=== PATIENT | female | born 1965 | race Caucasian/White ===

== ENCOUNTER → 2022-09-18 | Outpatient (CLI) | payer OTHER ==
--- NOTE | 2022-09-18 07:58 | US ---
EXAMINATION TYPE: US duplex aorta DATE OF EXAM: 09/18/2022 COMPARISON: NONE CLINICAL HISTORY: RUQ pain R10.11, fam hx Z82.49. Family history of AAA TECHNIQUE: Multiple sonographic images of the abdominal aorta are obtained. FINDINGS: EXAM MEASUREMENTS: Abdominal Aorta: Proximal: 1.9 x 1.9 cm Mid: 1.3 x 1.6 cm Distal: 1.2 x 1.1 cm Bifurcation: .9 cm 1.2 cm [employer]OR [employer] NOTES: No evidence of AAA seen. Aorta is visualized through the bifurcation. IMPRESSION: No Ultrasound evidence for greater than 3.0 cm AAA.
--- NOTE | 2022-09-18 08:01 | US ---
EXAMINATION TYPE: US gallbladder DATE OF EXAM: 09/18/2022 COMPARISON: NONE CLINICAL HISTORY: RUQ pain R10.11, fam hx Z82.49. TECHNIQUE: Multiple sonographic images of the right upper quadrant are obtained. Pain. 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 Visualized liver heterogeneously hyperechoic. No focal m asses or ductal dilatation. No right-sided hydronephrosis. No shadowing mobile gallstones. Fold is no demond. IMPRESSION: No shadowing mobile gallstones or ultrasound evidence for acute cholecystitis
== END | disposition home or self-care (01) ==
LOC: RADUSWWP 06:51
PROVIDERS: ATTEND Family Medicine
DX: R10.11 Right upper quadrant pain (principal); Z82.49 Family history of ischemic heart disease and other diseases of the circulatory system
CPT/HCPCS: 76705; 93979

== ENCOUNTER 2023-02-03 08:36 | Day surgery (SDC) | payer MEDICARE, OTHER ==
[2023-01-31 10:27] VITALS: BMI 32.5
[~2023-02-03 08:36] MED LIST: ALPRAZolam 0.25 MG TAB PO PRN; ALPRAZolam 0.5 MG TAB PO PRN; ASPIRIN 325 MG TAB PO STA; NITROGLYCERIN SL TABS 0.4 MG TAB SUBLINGUAL PRN; SODIUM CHLORIDE 0.9% 1,000 ML in EMPTY BAG 1 BAG IV SCH
[2023-02-03 08:54] VITALS: RESP 18; TEMP 98.1
[2023-02-03 09:10] LABS: Basophils % (A) 0 %; Eosinophils # (A) 0.1 k/uL (0-0.7); Eosinophils % (A) 2 %; HCT 39.6 % (34.0-46.0); HGB 13.4 gm/dL (11.4-16.0); Lymphocytes # (A) 1.8 k/uL (1.0-4.8); Lymphocytes % (A) 27 %; MCH 33.6 pg (25.0-35.0); MCHC 33.9 g/dL (31.0-37.0); Macrocytosis Slight; Mean Platelet Volume 8.9; Monocytes # (A) 0.3 k/uL (0-1.0); Monocytes % (A) 4 %; Neutrophils # (A) 4.3 k/uL (1.3-7.7); Neutrophils % (A) 65 %; Platelet Count 276 k/uL (150-450); RDW 14.3 % (11.5-15.5); WBC 6.6 k/uL (3.8-10.6)
[2023-02-03] MEDS ORDERED: HEPARIN SODIUM 1,000 UN/ML (10ML VL) ONE (10:08)
[2023-02-03] MEDS ORDERED: VERAPAMIL 2.5 MG/ML 2 ML AMP ONE (10:08)
[2023-02-03] MEDS ORDERED: fentaNYL (PF) 50 MCG/ML 2 ML AMP ONE (10:08)
[2023-02-03] MEDS: MIDAZOLAM 2 MG/2 ML VIAL IVP ONE ×2 (10:48→10:56)
[2023-02-03] MEDS: fentaNYL (PF) 50 MCG/ML 2 ML AMP IVP ONE ×2 (10:48→11:36)
[2023-02-03] MEDS ORDERED: LIDOCAINE 1% INJ 10MG/ML (5 ML VIAL-PF) SQ ONE (10:50)
[2023-02-03] MEDS ORDERED: VERAPAMIL SYRINGE (5 MG/10 ML) INTRAARTER ONE (10:52)
[2023-02-03] MEDS: HEPARIN SODIUM 1,000 UN/ML (10ML VL) IVP ONE ×2 (10:52→11:13)
[2023-02-03] MEDS ORDERED: CLOPIDOGREL 75 MG TAB ONE (11:09)
[2023-02-03] MEDS: NITROGLYCERIN 1000MCG/10ML SYRINGE INTRAARTER ONE ×5 (11:12→11:31)
[2023-02-03] MEDS ORDERED: CLOPIDOGREL 75 MG TAB PO ONE (11:13)
[2023-02-03] MEDS ORDERED: IOPAMIDOL-370 125ML BTL INJ ONE (11:27)
[2023-02-03] MEDS ORDERED: MIDAZOLAM 2 MG/2 ML VIAL IVP ONE (11:36)
[2023-02-03] MEDS ORDERED: IOPAMIDOL-370 100ML BTL INJ ONE (11:39)
[2023-02-03] MEDS ORDERED: CYCLOBENZAPRINE 10 MG TAB PO PRN (11:40)
[2023-02-03] MEDS ORDERED: ATROPINE SULFATE 0.1 MG/ML 10ML SYRINGE IV PRN (11:42)
[2023-02-03] MEDS ORDERED: MAG HYDROX/AL HYDROX/SIMETH 30 ML CUP PO PRN (11:42)
[2023-02-03] MEDS ORDERED: RX INFO: IV CONTRAST WAS GIVEN 1 EACH MISC MISCELLANE PRN (11:42)
[2023-02-03] MEDS ORDERED: ZOLPIDEM 5 MG TAB PO PRN (11:42)
[2023-02-03] MEDS ORDERED: ACETAMINOPHEN TAB 325 MG TAB PO PRN (12:00)
[2023-02-03] MEDS ORDERED: HEPARIN SODIUM,PORCINE/PF 5,000 UNIT/0.5 ML SYRINGE SQ STA (12:00)
[2023-02-03] MEDS ORDERED: ACETAMINOPHEN TAB 325 MG TAB ONE (12:01)
--- NOTE | 2023-02-03 13:07 | P.PRCINT ---
Percutaneous Coronary Int. - Percutaneous Coronary Intervention Percutaneous Coronary Intervention: PROCEDURES PERFORMED: Left heart catheterization, bilateral coronary angiography, iFR circumflex, PCI circumflex with a 3.5 x 23mm Xience MARIYA, post dilated with a 4.0 NC balloon, IVUS circumflex INDICATION: Abnormal stress test, dyspnea on exertion consistent with anginal equivalent CONSENT:I have discussed the risks, benefits and alternative therapies for the above-mentioned procedure and for both sedation/analgesia as well as necessary blood product administration, if indicated, as they pertain to this patient. The patient has indicated understanding and acceptance of the risks and procedures discussed. PROCEDURE: After the risks, benefits and alternatives of the above mentioned procedure explained in detail with the patient, informed consent was obtained. Patient was taken to the catheterization lab and prepped and draped in usual fashion. 1% lidocaine was used to anesthetize the right radial artery. A 6- Australian sheath was placed in the right radial artery using modified Seldinger technique. Left coronary angiography was performed with a 5-Australian JL 3.5 catheter and right coronary angiography was performed with a 5-Australian JR5 catheter in various views. A 5-Australian FR5 catheter was inserted into the left ventricle and pressure measurements were obtained. The decision was made to perform iFR of the circumflex. A 6-Australian CLS 3.5 guide was used to engage the left main. A 0.014 pressure wire was advanced into the proximal left main and normalized. The wire was then advanced 1 cm distal to the circumflex lesion. iFR was grossly abnormal at 0.72 and therefore decision was made to perform PCI. A 2.5 x 12 mm balloon and then a 3.25 x 15 mm NC balloon were used to predilate the lesion. Next a 3.5 x 23 mm Xience MARIYA was advanced and deployed in the mid circumflex. The midportion was postdilated with a 4.0 noncompliant balloon. Patient did have some chest pain which appeared more related to heartburn from swallowing Plavix however IVUS was performed which showed excellent stent apposition with reference vessel size 3.75-4.0 mm. The wire was pulled and final angiograms were performed. Pre- intervention there is 60-70% circumflex stenosis with ERIN 3 flow and postintervention there was 0% stenosis with ERIN 3 flow. The right radial sheath was removed and a TR band was placed with hemostasis achieved. The patient tolerated the procedure well. Patient was transported back to the post catheterization holding area in stable condition. Conscious Sedation: Patient was monitored under the direct supervision of vision of myself for conscious sedation using Versed and fentanyl for a total duration of 45 minutes HEMODYNAMICS: Ao: 133/78 LV: 129/5, LVEDP 12 SELECTIVE CORONARY ARTERIOGRAPHY: LEFT MAIN: The left main is a large caliber vessel which bifurcates into the LAD and circumflex. There is no significant stenosis. LEFT ANTERIOR DESCENDING CORONARY ARTERY: LAD is a large caliber vessel which wraps around to the apex. There are mild luminal irregularities LEFT CIRCUMFLEX CORONARY ARTERY: Left circumflex is a moderate to large caliber vessel with a mid circumflex 60-70% stenosis and otherwise mild luminal irregularities RIGHT CORONARY ARTERY: The right coronary artery is a small to moderate caliber vessel which gives off a PDA and PLV branch and is the dominant vessel. There are mild luminal irregularities. FINAL IMPRESSION: 1. Relatively normal coronary arteries with only mild luminal irregularities other than a mid circumflex 60-70% stenosis. 2. iFR anbormal of circumflex at 0.72 3. S/p PCI circumflex with a 3.5 x 23mm Xience MARIYA, post dilated with a 4.0 NC balloon 4. Normal left sided filling pressures PLAN: 1. Aggressive risk factor modification per most recent ACC/AHA guidelines. 2. Continue dual antiplatelets with aspirin and Plavix for 12 months.
[2023-02-03] MEDS ORDERED: amLODIPine 5 MG TAB PO SCH (14:00)
[2023-02-03 16:10] VITALS: BP 110/62; PULSE 66
[2023-02-03] MEDS ORDERED: NON FORMULARY DRUG (Diclofenac Sodium [Voltaren] 75 MG Tablet) PO SCH (21:00)
[2023-02-03] MEDS ORDERED: ATORVASTATIN 80 MG TAB PO SCH (21:00)
[2023-02-03] MEDS ORDERED: METOPROLOL TARTRATE 25 MG TAB PO SCH (21:00)
[2023-02-03] MEDS ORDERED: GABAPENTIN 300 MG CAP PO SCH (21:00)
[2023-02-04] MEDS ORDERED: metHOTREXate sodium 2.5 MG TAB PO SCH (09:00)
[2023-02-04] MEDS ORDERED: MULTIVITAMINS, THERA 1 EACH TAB PO SCH (09:00)
[2023-02-04] MEDS ORDERED: NON FORMULARY DRUG (Lisinopril [Zestril] 40 MG Tablet) PO SCH (09:00)
[2023-02-04] MEDS ORDERED: NON FORMULARY DRUG (Bupropion Hcl [Bupropion Hcl Sr] 150 MG Tab.Er.12h) PO SCH (09:00)
[2023-02-04] MEDS ORDERED: OXYBUTYNIN 10 MG TAB.ER.24 PO SCH (09:00)
[2023-02-04] MEDS ORDERED: FOLIC ACID 1 MG TAB PO SCH (09:00)
[2023-02-04] MEDS ORDERED: NON FORMULARY DRUG (Fluoxetine Hcl [Prozac] 40 MG Capsule) PO SCH (09:00)
[2023-02-04] MEDS ORDERED: ASPIRIN 81 MG PO SCH (09:00)
[2023-02-04] MEDS ORDERED: CLOPIDOGREL 75 MG TAB PO SCH (09:00)
[2023-02-09] MEDS ORDERED: ERGOCALCIFEROL 1,250 MCG (50,000 IU) CAPSULE PO SCH (11:40)
== END 2023-02-03 16:13 | disposition home or self-care (01) ==
LOC: CATHCVL 08:36
PROVIDERS: ATTEND Internal Medicine
DX: I25.10 Atherosclerotic heart disease of native coronary artery without angina pectoris (principal); I10 Essential (primary) hypertension; R06.09 Other forms of dyspnea; E78.5 Hyperlipidemia, unspecified; F17.210 Nicotine dependence, cigarettes, uncomplicated; Z88.1 Allergy status to other antibiotic agents
CPT/HCPCS: 92978; 93458; 93799; 85025; C9600; C1769 ×3; C1887; C1894; C1753; C1874; C1725 ×3; J2250; J2001; J3010; J1644; Q9967 ×2

== ENCOUNTER → 2023-08-21 | Outpatient (CLI) | payer MEDICARE, OTHER ==
--- NOTE | 2023-08-21 12:40 | CTL ---
EXAMINATION TYPE: CT Low Dose Lung DATE OF EXAM ORDERED: 08/21/2023 COMPARISON: 12/26/2021 HISTORY: . Low Dose CT Lung Screening CT DLP: [address] CTDI: 2.29 mGy IV CONTRAST USED: None. SCREENING VISIT: Second COMPARISON: None. TECHNIQUE: Low dose computed tomography scan was performed through the chest at 1 millimeter thick se ctions and reconstructed images in the coronal plane at [address] DIAGNOSTIC QUALITY: Satisfactory FINDINGS: LUNG NODULES: A few scattered sub-3 mm pulmonary nodules are redemonstrated. No pulmonary nodularity greater than 5 mm. LUNGS: COPD: Severity: Mild Fibrosis: Severity:None Lymph nodes: None Other findings: None RIGHT PLEURAL SPACE: Effusion: None Calcification: None Thickening: None Pneumothorax: None LEFT PLEURAL SPACE: Effusion: None Calcification: None Thickening: None Pneumothorax: None HEART: Heart Size: Mildly enlarged Coronary calcification: Mild Pericardial effusion: None OTHER FINDINGS: Upper abdomen: No significant abnormality Bony thorax: Degenerative changes Supraclavicular region: No significant abnormalityOther: No significant abnormalityI IMPRESSION: Stable sub-3 mm pulmonary nodules totaling approximately [address] UP [address] CHEST RECOMMENDATION: Follow-up screening in one year CT LUNG RAD: LUNG RAD CATEGORY 2 benign appearance and/or behavior
== END | disposition home or self-care (01) ==
LOC: RADCTMAIN 12:13
PROVIDERS: ATTEND Family Medicine
DX: Z12.2 Encounter for screening for malignant neoplasm of respiratory organs (principal); F17.210 Nicotine dependence, cigarettes, uncomplicated; R91.8 Other nonspecific abnormal finding of lung field
CPT/HCPCS: 71271

== ENCOUNTER → 2023-10-07 | Outpatient (CLI) | payer MEDICARE, OTHER ==
[2023-10-07 18:10] LABS: HCT 40.1 % (37.2-46.3); HGB 12.8 g/dL (12.0-15.0); MCH 33.5 pg (27.0-32.0); MCHC 31.9 g/dL (32.0-37.0); Mean Platelet Volume 12.4 FL (9.5-12.2); NRBC Per 100 WBC 0 X 10*3/uL (0.00-0.01); Platelet Count 262 X 10*3/uL (140-440); RBC 3.82 X 10*6/uL (4.10-5.20); RDW 14.5 % (11.5-14.5); WBC 11.78 X 10*3/uL (4.50-10.00)
[2023-10-07 18:11] LABS: Basophils # (A) 0.06 X 10*3/uL (0.00-0.10); Basophils % (A) 0.5 %; Eosinophils # (A) 0.06 X 10*3/uL (0.04-0.35); Eosinophils % (A) 0.5 %; Lymphocytes # (A) 2.86 X 10*3/uL (0.90-5.00); Lymphocytes % (A) 24.3 %; Monocytes # (A) 0.77 X 10*3/uL (0.20-1.00); Monocytes % (A) 6.5 %; Neutrophils # (A) 7.93 X 10*3/uL (1.80-7.70); Neutrophils % (A) 67.4 %
[2023-10-07 18:19] LABS: Blood Urea Nitrogen 23.3 mg/dL (9.0-27.0); Chloride 109 mmol/L (96-109); Glucose 116 mg/dL (70-110); Potassium 4.6 mmol/L (3.5-5.5); Sodium 141 mmol/L (135-145)
[2023-10-07 18:20] LABS: Calcium 9.4 mg/dL (8.7-10.3); Carbon Dioxide 21.3 mmol/L (21.6-31.8)
== END | disposition home or self-care (01) ==
LOC: LABPAT 13:53
PROVIDERS: ATTEND Orthopaedic Surgery Hand Surgery
DX: Z01.812 Encounter for preprocedural laboratory examination (principal); M18.12 Unilateral primary osteoarthritis of first carpometacarpal joint, left hand; G56.02 Carpal tunnel syndrome, left upper limb
CPT/HCPCS: 80048; 85025; 93005

== ENCOUNTER → 2023-10-16 | Outpatient (CLI) | payer MEDICARE, OTHER ==
--- NOTE | 2023-10-16 13:38 | BD ---
EXAMINATION TYPE: Axial Bone Density DATE OF EXAM: 10/16/2023 CLINICAL HISTORY: 58 years old Female. ICD-10 CODE: Z78.0 POST MENOPAUSAL Height: 63" Weight: 194.1lbs FRAX RISK QUESTIONS: Alcohol (3 or more units per day): No Family History (Parent hip fracture): No Glucocorticoids (More than 3mos): No (Ex: prednisone, prednisolone, methylprednisolone, dexamethasone, and hydrocortisone). History of Fracture in Adulthood: No Secondary Osteoporosis: No 1. Type 1 Diabetes: No 2. Hyperthyroidism: No 3. Menopause before 45: No 4. Malnutrition: No 5. Chronic liver disease: No Rheumatoid Arthritis: Yes Current Tobacco Use: Yes RISK FACTORS HISTORY OF: Hip Fracture (Right/Left): No Spine Fracture: No History of Wrist Fracture: No Surgery to Spine/Hip(right/left)/Wrist (right/left): No Family History of Osteoporosis: Yes, Father Active: Yes Diet low in dairy products/other sources of calcium: Yes Postmenopausal woman: Yes Lost more than 2 inches in height since high school: No Frequent falls: No Poor Health: No Hyperparathyroidism: No Adrenal Insufficiency: No MEDICATIONS: Prednisone or other steroids: No Thyroid Medications: No Osteoporosis Medications: Additional Medications: Blood pressure meds, heart meds, cholesterol meds, anxiety meds, vitamin D, C alcium Additional History: None EXAM MEASUREMENTS: Bone mineral densitometry was performed using the Tragara System. Bone mineral density as measured about the Lumbar spine is: ----- L1-L4(G/cm2): 1.116 T Score Values are as follows: ----- L1: -0.8 ----- L2: -1.4 ----- L3: -0.3 ----- L4: 0.0 ----- L1-L4: -0.5 Z Score Values are as follows: ----- L1: -0.5 ----- L2: -1.1 ----- L3: 0.0 ----- L4: 0.3 ----- L1-L4: -0.2 Baseline @ [facility] Bone mineral density about the R hip (g/cm2): 1.050 Bone mineral density about the L hip (g/cm2): 1.079 T Score values are as follows: -----R Neck: -0.5 -----L Neck: -0.2 -----R Total: 0.3 -----L Total: 0.6 Z Score values are as follows: -----R Neck: 0.2 -----L Neck: 0.5 -----R Total: 0.6 -----L Total: 0.8 Baseline @ [facility] FRAX%s: The graph provided illustrates a 5.6% chance for a major osteoporotic fx and a 0.3% chance fo r the hips probability for fx in 10 years time. IMPRESSION: Normal (Values between +1 and -1 indicate normal bone mass). Consider repeating this study in 5 year s or sooner if there is some new clinical indication. NOTE: T-SCORE=SD OF THE YOUNG ADULT MEAN.
--- NOTE | 2023-10-19 18:15 | MM ---
Reason for Exam: Screening (asymptomatic). Patient History: Menarche at age 13. First Full-Term at age 17. Postmenopausal. Risk Values: Rosemary 5 year model risk: 1.0%. NCI Lifetime model risk: 5.6%. Prior Study Comparison: No prior studies available for comparison. Tissue Density: The breast tissue is heterogeneously dense. This may lower the sensitivity of mammography. Findings: Analyzed By CAD. No significant mass, suspicious microcalcification, or other discrete abnormality is seen. Overall Assessment: Negative, BI-RAD 1 Management: Screening Mammogram of both breasts in 1 year. . Patient should continue monthly self-breast exams. A clinical breast exam by your physician is recommended on an annual basis. This exam should not preclude additional follow-up of suspicious palpable abnormalities. Note on Rosemary scores and lifetime risk: 1. A Rosemary score greater than 3% is considered moderate risk. If this is the case, consider specialist referral to assess eligibility for a risk reducing agent. 2. If overall lifetime risk for the development of breast cancer is 20% or higher, the patient may qualify for future screening with alternating mammogram and breast MRI. Electronically signed and approved by: Dewayne Irwin M.D. Radiologist
== END | disposition home or self-care (01) ==
LOC: RADMAMWWP 07:44
PROVIDERS: ATTEND Family Medicine
DX: Z12.31 Encounter for screening mammogram for malignant neoplasm of breast (principal); M85.88 Other specified disorders of bone density and structure, other site; Z78.0 Asymptomatic menopausal state
CPT/HCPCS: 77063; 77067; 77080

== ENCOUNTER 2023-10-29 10:40 | Day surgery (SDC) | payer MEDICARE, OTHER ==
--- NOTE | 2023-10-28 10:01 | P.HPOR ---
History of Present Illness H&P Date: 10/28/23 Subjective: This is a 58 year old female that presents today for initial evaluation regarding a several year history of progressively worsening left base of the thumb pain and left hand numbness and tingling in the thumb, index, and middle finger. She has tried bracing, injections into the thumb CMC joint and NSAIDs with only temporary relief of her symptoms. She has symptoms on a daily basis and has pain with any type of pinch or grasp. She denies any injury. Physical Examination: LUE: AIN/PIN/Radial/Ulnar/Median motor intact. Radial/Ulnar/Median SILT. 2+/4 Radial/Ulnar pulses palpated. 5/5 APB, 5/5 FDI. Negative Finkelsteins, positive CMC grind, positive Durkan's compression. Imaging: X-Rays of the left hand 3v taken in office today demonstrates severe thumb CMC arthritis. Impression: 1.) Left thumb CMC arthritis, severe. 2.) Left carpal tunnel syndrome Plan: Diagnosis and treatment options were discussed with the patient. She has failed conservative treatment and would like to pursue a left thumb CMC basilar joint arthroplasty and left endoscopic vs open carpal tunnel release. Risks and benefits of surgery including bleeding, infection, damage to surrounding tissue, need for further surgery, possible need to convert to open procedure, residual numbness were discussed and the patient wished to go forward with surgery. The patient was agreeable with this plan. CC:Sonam AGUILLON -Andreas Jha DO Orthopedic Hand/Upper Extremity Surgeon Past Medical History Past Medical History: Coronary Artery Disease (CAD), Hyperlipidemia, Hypertension, Rheumatoid Arthritis (RA) Additional Past Medical History / Comment(s): stress incontinence History of Any Multi-Drug Resistant Organisms: None Reported Past Surgical History: Heart Catheterization With Stent, Joint Replacement, Tubal Ligation Additional Past Surgical History / Comment(s): Total bilateral knee arthroplasies Past Anesthesia/Blood Transfusion Reactions: No Reported Reaction Date of Last Stent Placement:: 01/2023 Smoking Status: Current every day smoker - Past Family History Father Family Medical History: COPD, Coronary Artery Disease (CAD), CVA/TIA, Hyperlipidemia, Hypertension, Myocardial Infarction ([place]), Vascular Disorder Additional Family Medical History / Comment(s): AAA, aneurysm. Mother Family Medical History: Renal Disease Additional Family Medical History / Comment(s): at 62 yrs from kidney problems. Medications and Allergies Home Medications Medication Instructions Recorded Confirmed Type ALPRAZolam [Xanax] 0.5 mg PO BID PRN 01/31/23 10/27/23 History Aspirin 81 mg PO 1700 01/31/23 10/27/23 History Cyclobenzaprine [Flexeril] 10 mg PO HS PRN 01/31/23 10/27/23 History Diclofenac Sodium [Voltaren] 75 mg PO BID 01/31/23 10/27/23 History Ergocalciferol [Vitamin D2 (1250 1,250 mcg PO DELANEY 01/31/23 10/27/23 History Mcg = [id number] Iu)] FLUoxetine HCL [PROzac] 40 mg PO QAM 01/31/23 10/27/23 History Gabapentin [Neurontin] 300 mg PO BID 01/31/23 10/27/23 History Multivitamins, Thera [Multivitamin 1 tab PO QAM 01/31/23 10/27/23 History (formulary)] Oxybutynin ER [Ditropan XL] 10 mg PO QAM 01/31/23 10/27/23 History amLODIPine [Norvasc] 5 mg PO 1700 01/31/23 10/27/23 History buPROPion HCL [buPROPion HCL SR] 150 mg PO BID 01/31/23 10/27/23 History lisinopriL [Zestril] 40 mg PO QAM 01/31/23 10/27/23 History Atorvastatin [Lipitor] 80 mg PO HS tab 02/03/23 10/27/23 Rx Metoprolol Tartrate [Lopressor] 12.5 mg PO BID tab 02/03/23 10/27/23 Rx Clopidogrel [Plavix] 75 mg PO QAM 10/27/23 10/27/23 History Varenicline [Chantix Continuing 1 mg PO DIRECTED 10/27/23 10/27/23 History Pack] Allergies Allergy/AdvReac Type Severity Reaction Status Date / Time Sulfa (Sulfonamide Allergy Severe Anaphylaxis Verified 10/27/23 10:18 Antibiotics) Physical Examination Osteopathic Statement: *. No significant issues noted on an osteopathic structural exam other than those noted in the History and Physical/Consult.
[2023-10-29] MEDS ORDERED: DEXAMETHASONE SOD PHOSPHATE 4 MG/ML 1 ML VIAL IV ONE (10:58)
[2023-10-29] MEDS ORDERED: LACTATED RINGERS 1,000 ML IV SCH (10:58)
[2023-10-29] MEDS ORDERED: ONDANSETRON 4 MG/2 ML VIAL IVP ONE (10:58)
[2023-10-29] MEDS ORDERED: HYDROmorphone 0.5 MG/0.5 ML SYRINGE IVP PRN (10:58)
[2023-10-29] MEDS ORDERED: LIDOCAINE 1% (10MG/ML) FOR IV START INTRADERMA ONE (11:24)
[2023-10-29] MEDS ORDERED: MIDAZOLAM 2 MG/2 ML VIAL IVP ONE (11:36)
[2023-10-29] MEDS ORDERED: fentaNYL (PF) 50 MCG/ML 2 ML AMP IVP ONE (11:36)
[2023-10-29 11:38] VITALS: TEMP 97.1
[2023-10-29] MEDS ORDERED: ePHEDrine 50 MG/ML 1 ML VIAL ONE (11:54)
[2023-10-29] MEDS ORDERED: ROPIVACAINE 5 MG/ML 30 ML VIAL ONE (11:54)
[2023-10-29] MEDS ORDERED: fentaNYL (PF) 50 MCG/ML 2 ML AMP ONE (11:54)
[2023-10-29] MEDS ORDERED: SODIUM CHLORIDE 0.9% (PF) 10 ML VIAL ONE (11:54)
[2023-10-29] MEDS ORDERED: PROPOFOL 10 MG/ML 20 ML VIAL IV ONE (11:54)
[2023-10-29] MEDS ORDERED: PHENYLEPHRINE-0.9% NACL SYG 1,000 MCG/10 ML SYRINGE ONE (11:54)
[2023-10-29] MEDS ORDERED: LIDOCAINE 1% INJ 10MG/ML (20 ML MDV) ONE (11:54)
[2023-10-29] MEDS ORDERED: WATER FOR INJECTION, STERILE 10 ML VIAL IV ONE (11:54)
[2023-10-29 12:03] VITALS: RESP 16
--- NOTE | 2023-10-29 13:10 | P.OP ---
Date of Procedure: 10/29/23 Preoperative Diagnosis: 1.) Left carpal tunnel syndrome 2.) Left thumb CMC arthritis Postoperative Diagnosis: 1.) Left carpal tunnel syndrome 2.) Left thumb CMC arthritis Procedure(s) Performed: 1.) Left endoscopic carpal tunnel release 2.) Left thumb CMC basilar joint arthroplasty Implants: Arthrex 3.5mm Swivel Lock suture anchor x2 Surgeon: Andreas Jha Estimated Blood Loss (ml): 0 Pathology: none sent Condition: stable Disposition: PACU Description of Procedure: This is a 58 year old female who presents today for a left endoscopic carpal tunnel release and left thumb basilar joint arthroplasty after having failed conservative treatment in the past. Risks and benefits of surgery were discussed with the patient including bleeding, damage to surrounding tissue, infection, need to convert to open procedure, need for further surgery as well as risks of anesthesia including pulmonary embolism and even and the patient wished to proceed with surgical intervention. The patients was seen in the pre-operative area by myself. Consent and H&P were completed and updated. The correct extremity was marked in the pre-operative area by myself and all other questions were answered. Operative Narrative: The patient was brought to the operating room by the department of anesthesia. They remained on the portable stretcher and a rolling hand table was brought to the side of the operative extremity. Pre-operative time out was performed indicating the correct patient, procedure and laterality. All in the room agreed. The patient was then drifted off to sleep by the department of anesthesia. A nonsterile tourniquet was then applied to the operative extremity and the left upper extremity was then prepped and draped in normal sterile fashion. The operative extremity was the exsanguinated with an esmarch bandage and the tourniquet was inflated to 250mmHg. 15 blade scalpel was utilized to make a transverse incision on the palmar skin just ulnar to the palmaris longus tendon at the level of the distal wrist crease. Ragnell retractor was then placed radially and blunt dissection was performed to reveal the distal forearm fascia. This was lifted with fine Jermaine pick ups and Littler tenotomy scissors were then used to open the forearm fascia transversely and a double skin hook was then placed. Hamate finder was placed into the carpal tunnel and then sequential sized dilators were inserted followed by the synovial elevator to separate the flexor tenosynovium from the undersurface of the transverse carpal ligament and a washboard texture was felt. The MicroAire endoscopic carpal tunnel release system gun was the then inserted into the carpal tunnel hugging the deep portion of the transverse carpal ligament in line with the base of the ring finger. Transverse fibers of the ligament were directly visualized. Pressure was applied on the palm to reveal the distal extent of the transverse carpal ligament. The blade was then deployed and the distal half of the transverse carpal ligament was released. The scope was then brought distal again and remaining transverse fibers were incised with the blade. The proximal half of the transverse carpal ligament was then divided and again the scope was advanced distal and remaining transverse fibers were incised with the blade. The radial and ulnar leaflets were directly visualized and mobile consistent with complete release. Tenotomy scissors were then utilized to release the remaining distal forearm fascia under direct visualization taking care to preserve the palmar cutaneous branch of the median nerve. Longitudinal incision was made over the left thumb CMC joint with a 15 blade scalpel. Blunt dissection was taken down to subcutaneous tissues with littler scissors taking care to preserve the branches of the superficial radial nerve. Dorsal radial artery was identified proximally in the incision and protected throughout the procedure. Scalpel was then made to incise the thumb CMC joint creating full thickness flaps off of the proximal metacarpal base and trapezium, this plane was further developed with a periosteal elevator. Elevator was then utilized to identify the thumb CMC joint and scaphotrapezial joint. McGlamory elevator was then used to excise the trapezium whole. Guidewire was then introduced down to the laser line at the base of the first metacarpal through the same incision and was over drilled. Another guidewire was then inserted at the radial base of the first metacarpal near the Insertion of APL and was then over drilled with normal drill guide. A 3.5mm Arthrex SwiveLock anchor was then inserted into the base of the first metacarpal. While holding the thumb in slight traction and full adduction, another 3.5mm Arthrex SwiveLock anchor was inserted into the base of the second metacarpal and the two strands of fibertape were centered across the first metacarpal base to create a sling around the base suspending the thumb metacarpal, good maxim purchase was appreciated. The thumb was successfully suspended and full ROM was achieved passively. Suture ends were cut and skin was closed with several interrupted 4-0 Monocryl sutures followed by a running 4-0 Monocryl stitch. Sterile dressing consisting of steri strips followed by 4x4s cast padding, and a thumb spica plaster splint was applied. Tourniquet was let down and the hand had brisk cap refill and normal perfusion immediately. The patient was then woken by the department of anesthesia and transferred to PACU in stable condition. Andreas Jha D.O. Orthopedic Hand/Upper Extremity Surgeon
--- NOTE | 2023-10-29 13:15 | P.ANPRN ---
Procedure Note - Anesthesia - Nerve Block Performed Left Axillary Single Time Out Performed: Yes ([id number]) Date of Procedure: 10/29/23 Procedure Start Time: 11:37 Procedure Stop Time: 11:43 Location of Patient: PreOp Indication: Acute Post-Operative Pain, Requested by Surgeon Specifically requested for management of pain by DrSilvestre: Andreas Jha Sedation Type: Sedate with meaningful contact maintained Preparation: Sterile Prep Position: Supine (arm over) Catheter: None Needle Types: Pajunk Needle Gauge: 21 Ultrasound used to visualize needle placement: Yes Ultrasound used to observe medication spread: Yes Injectate: 0.5% Ropivacaine (see comment for volume) (30cc +a 10cc nacl pf (10cc aliqouts each nerve)) Blood Aspirated: No Pain Paresthesia on Injection Noted: No Resistance on Injection: Normal Image Stored and Saved: Yes Events: Uneventful and Well Tolerated
[2023-10-29 14:58] VITALS: BP 111/73; PULSE 73
== END 2023-10-29 14:56 | disposition home or self-care (01) ==
LOC: OR 10:40
PROVIDERS: ATTEND Orthopaedic Surgery Hand Surgery
DX: G56.02 Carpal tunnel syndrome, left upper limb (principal); M18.12 Unilateral primary osteoarthritis of first carpometacarpal joint, left hand; I25.10 Atherosclerotic heart disease of native coronary artery without angina pectoris; I10 Essential (primary) hypertension; M06.9 Rheumatoid arthritis, unspecified; E78.5 Hyperlipidemia, unspecified; F17.200 Nicotine dependence, unspecified, uncomplicated; Z79.02 Long term (current) use of antithrombotics/antiplatelets; Z88.1 Allergy status to other antibiotic agents; Z88.2 Allergy status to sulfonamides; Z79.899 Other long term (current) drug therapy
CPT/HCPCS: 64415; 25447; 29848; C1713; J2250; J1100; J0690; J2405; J2001; J3010; J2795; J2704; J2371

== ENCOUNTER 2024-03-18 12:09 | Emergency (ER) | payer MEDICARE ==
--- NOTE | 2024-03-18 13:03 | ED ---
General Adult HPI - General Chief complaint: GI Bleed Stated complaint: blood in stool,abd pain Time Seen by Provider: 03/18/24 12:48 Source: patient Mode of arrival: ambulatory Limitations: no limitations - History of Present Illness Initial comments: Dictation was produced using [employer] dictation software. please excuse any grammatical, word or spelling errors. Chief Complaint: 58-year-old female presents emergency department for abdominal pain and bright red blood per rectum History of Present Illness: Patient is a 50-year-old female she has past medical history coronary artery disease dyslipidemia and hypertension. Patient for the last 1 to 2 days has been having bright blood per rectum. She states that it stool mixed with blood. Denies any anticoagulation use. She does complain of some lower abdominal pain worse on the left. Denies any history of diverticulitis. Patient has been having night sweats. Denies any fevers or chills. The ROS documented in this emergency department record has been reviewed and confirmed by me. Those systems with pertinent positive or negative responses have been documented in the HPI. All other systems are other negative and/or noncontributory. - Related Data Home Medications Medication Instructions Recorded Confirmed ALPRAZolam [Xanax] 0.5 mg PO BID PRN 01/31/23 10/29/23 Aspirin 81 mg PO 1700 01/31/23 10/29/23 Cyclobenzaprine [Flexeril] 10 mg PO HS PRN 01/31/23 10/29/23 Diclofenac Sodium [Voltaren] 75 mg PO BID 01/31/23 10/29/23 Ergocalciferol [Vitamin D2 (1250 1,250 mcg PO DELANEY 01/31/23 10/29/23 Mcg = 95689 Iu)] FLUoxetine HCL [PROzac] 40 mg PO QAM 01/31/23 10/29/23 Gabapentin [Neurontin] 300 mg PO BID 01/31/23 10/29/23 Multivitamins, Thera [Multivitamin 1 tab PO QAM 01/31/23 10/29/23 (formulary)] Oxybutynin ER [Ditropan XL] 10 mg PO QAM 01/31/23 10/29/23 amLODIPine [Norvasc] 5 mg PO 1700 01/31/23 10/29/23 buPROPion HCL [buPROPion HCL SR] 150 mg PO BID 01/31/23 10/29/23 lisinopriL [Zestril] 40 mg PO QAM 01/31/23 10/29/23 Clopidogrel [Plavix] 75 mg PO QAM 10/27/23 10/29/23 Varenicline [Chantix Continuing 1 mg PO DIRECTED 10/27/23 10/29/23 Pack] Previous Rx's Medication Instructions Recorded Atorvastatin [Lipitor] 80 mg PO HS tab 02/03/23 Metoprolol Tartrate [Lopressor] 12.5 mg PO BID tab 02/03/23 HYDROcodone/APAP 5-325MG [[place] 1 tab PO Q6HR PRN 3 Days #24 tab 10/29/23 5-325] Amoxic-Pot Clav 875-125Mg 1 tab PO Q8H 5 Days #15 tab 03/18/24 [Augmentin 875-125] HYDROcodone/APAP 5-325MG [[place] 1 tab PO Q6HR PRN 3 Days #12 tab 03/18/24 5-325] Ondansetron Odt [Zofran Odt] 4 mg PO Q8HR PRN #12 tab 03/18/24 Allergies Allergy/AdvReac Type Severity Reaction Status Date / Time Sulfa (Sulfonamide Allergy Severe Anaphylaxis Verified 03/18/24 12:17 Antibiotics) Review of Systems ROS Statement: Those systems with pertinent positive or pertinent negative responses have been documented in the HPI. ROS Other: All systems not noted in ROS Statement are negative. Past Medical History Past Medical History: Coronary Artery Disease (CAD), Hyperlipidemia, Hypertension, Rheumatoid Arthritis (RA) Additional Past Medical History / Comment(s): stress incontinence History of Any Multi-Drug Resistant Organisms: None Reported Past Surgical History: Heart Catheterization With Stent, Joint Replacement, Tubal Ligation Additional Past Surgical History / Comment(s): Total bilateral knee arthroplasies Past Anesthesia/Blood Transfusion Reactions: No Reported Reaction Date of Last Stent Placement:: 01/2023 Past Psychological History: Anxiety, Depression Smoking Status: Current every day smoker Past Alcohol Use History: Occasional Past Drug Use History: None Reported - Past Family History Father Family Medical History: COPD, Coronary Artery Disease (CAD), CVA/TIA, Hyperlipidemia, Hypertension, Myocardial Infarction (TN), Vascular Disorder Additional Family Medical History / Comment(s): AAA, aneurysm. Mother Family Medical History: Renal Disease Additional Family Medical History / Comment(s): at 62 yrs from kidney problems. General Exam - General Exam Comments Initial Comments: PHYSICAL EXAM: General Impression: Alert and oriented x3, not in acute distress HEENT: Normocephalic atraumatic, extra-ocular movements intact, pupils equal and reactive to light bilaterally, mucous membranes moist. Cardiovascular: Heart regular rate and rhythm Chest: Able to complete full sentences, no retractions, no tachypnea Abdomen: abdomen soft, n palpatory tenderness to the lower abdomen worse on the left non-distended, no organomegaly Musculoskeletal: Pulses present and equal in all extremities, no peripheral edema Motor: no focal deficits noted Neurological: CN II-XII grossly intact, no focal motor or sensory deficits noted Skin: Intact with no visualized rashes Psych: Normal affect and mood Rectal exam: No gross blood, no hemorrhoid or anal fissure Limitations: no limitations Course Vital Signs 03/18/24 12:14 Temperature 98.4 F Pulse Rate 92 Respiratory 16 Rate Blood Pressure 110/78 O2 Sat by Pulse 96 Oximetry Medical Decision Making - Medical Decision Making Was pt. sent in by a medical professional or institution (, PA, MATH COACH, urgent care, hospital, or senior living...) When possible be specific @ -No Did you speak to anyone other than the patient for history (EMS, parent, family, police, friend...)? What history was obtained from this source @ -No Did you review nursing and triage notes (agree or disagree)? Why? @ -I reviewed and agree with nursing and triage notes Were old charts reviewed (outside hosp., previous admission, EMS record, old EKG, old radiological studies, urgent care reports/EKG's, senior living records)? Report findings @ -No old charts were reviewed Differential Diagnosis (chest pain, altered mental status, abdominal pain women, abdominal pain men, vaginal bleeding, musculoskeletal, weakness, fever, dyspnea, syncope, headache, dizziness, GI bleed, back pain, seizure, CVA, palpatations, mental health)? @ -Differential Abdominal Pain Women: Appendicitis, Cholecystitis, diverticulosis, ischemic bowel, pancreatitis, hepa titis, UTI, gastroenteritis, AAA, incarcerated hernia, bowel obstruction, constipation, inflammatory bowel, hepatitis, peptic ulcer disease, splenic infarction, perforated viscus, vulvitis, ovarian torsion, PID, kidney stone, placenta abruption, this is not meant to be an all-inclusive list EKG interpreted by me (3pts min.). @ -None done X-rays interpreted by me (1pt min.). @ -None done CT interpreted by me (1pt min.). @ -CT scan of the abdomen and pelvis shows uncomplicated diverticulitis U/S interpreted by me (1pt. min.). @ -None done What testing was considered but not performed or refused? (CT, X-rays, U/S, labs)? Why? @ -None What meds were considered but not given or refused? Why? @ -None Did you discuss the management of the patient with other professionals (professionals i.e. , PA, MATH COACH, lab, RT, psych nurse, social science instructor, telecommunications specialist, teacher, chief data officer, employment evaluator/case manager)? Give summary @ -No Was smoking cessation discussed for >3mins.? @ -No Was critical care preformed (if so, how long)? @ -No Were there social determinants of health that impacted care today? How? (H omelessness, low income, unemployed, alcoholism, drug addiction, transportation, low edu. Level, literacy, decrease access to med. care, fdc, rehab)? @ -No Was there de-escalation of care discussed even if they declined (Discuss DNR or withdrawal of care, Hospice)? DNR status @ -No What co-morbidities impacted this encounter? (DM, HTN, Smoking, COPD, CAD, Cancer, CVA, ARF, Chemo, Hep., AIDS, mental health diagnosis, sleep apnea, morbid obesity)? @ -None Was patient admitted / discharged? Hospital course, mention meds given and route, prescriptions, significant lab abnormalities, going to OR and other pertinent info. @ -58-year-old female presents emergency department abdominal pain and bright blood per rectum. Vital signs upon arrival are within acceptable limits. Laboratory evaluation is obtained. Labs are within acceptable limits. CT shows uncomplicated diverticulitis. Patient reevaluated bedside at 2:38 PM found to be within stable medical addition. Patient given analgesics. Patient able to tolerate oral intake. Patient will be discharged with prescription for antibio tics. Advise follow-up with primary care doctor. Undiagnosed new problem with uncertain prognosis? @ -No Drug Therapy requiring intensive monitoring for toxicity (Heparin, Nitro, Insulin, Cardizem)? @ -No Were any procedures done? @ -No Diagnosis/symptom? Acute, or Chronic, or Acute on Chronic? Uncomplicated (without systemic symptoms) or Complicated (systemic symptoms)? @ -Acute diverticulitis Side effects of treatment? @ -No Exacerbation, Progression, or Severe Exacerbation? @ -No Poses a threat to life or bodily function? How? (Chest pain, [place], [place], pneumonia, PE, COPD, DKA, ARF, appy, cholecystitis, CVA, Diverticulitis, Homicidal, Suicidal, threat to staff... and all critical care pts) @ -yes - Lab Data Result diagrams: 03/18/24 13:24 03/18/24 13: Lab Results 03/18/24 03/18/24 03/18/24 Range/Units 13:24 13:24 13:24 WBC 11.6 H (3.8-10.6) k/uL RBC 3.92 (3.80-5.40) m/uL Hgb 12.4 (11.4-16.0) gm/dL Hct 39.1 (34.0-46.0) % MCV 99.6 (80.0-100.0) fL MCH 31.7 (25.0-35.0) pg MCHC 31.8 (31.0-37.0) g/dL RDW 13.0 (11.5-15.5) % Plt Count 191 (150-450) k/uL MPV 10.1 Neutrophils % 82 % Lymphocytes % 11 % Monocytes % 5 % Eosinophils % 1 % Basophils % 0 % Neutrophils # 9.5 H (1.3-7.7) k/uL Lymphocytes # 1.3 (1.0-4.8) k/uL Monocytes # 0.6 (0-1.0) k/uL Eosinophils # 0.1 (0-0.7) k/uL Basophils # 0.0 (0-0.2) k/uL PT 10.1 (10.0-12.5) sec INR 0.9 (<1.2) APTT 22.2 (22.0-30.0) sec Sodium (137-145) mmol/L Potassium (3.5-5.1) mmol/L Chloride (98-107) mmol/L Carbon Dioxide (22-30) mmol/L Anion Gap mmol/L BUN (7-17) mg/dL Creatinine (0.52-1.04) mg/dL Est GFR (CKD-EPI)AfAm (>60 ml/min/1.73 sqM) Est GFR (CKD-EPI)NonAf (>60 ml/min/1.73 sqM) Glucose (74-99) mg/dL Calcium (8.4-10.2) mg/dL Blood Type Recheck No Previous Record Bld Type Recheck Status CABO Indicated Spec Expiration Date 03/21/2024 - 232303/18/24 Range/Units 13:24 WBC (3.8-10.6) k/uL RBC (3.80-5.40) m/uL Hgb (11.4-16.0) gm/dL Hct (34.0-46.0) % MCV (80.0-100.0) fL MCH (25.0-35.0) pg MCHC (31.0-37.0) g/dL RDW (11.5-15.5) % Plt Count (150-450) k/uL MPV Neutrophils % % Lymphocytes % % Monocytes % % Eosinophils % % Basophils % % Neutrophils # (1.3-7.7) k/uL Lymphocytes # (1.0-4.8) k/uL Monocytes # (0-1.0) k/uL Eosinophils # (0-0.7) k/uL Basophils # (0-0.2) k/uL PT (10.0-12.5) sec INR (<1.2) APTT (22.0-30.0) sec Sodium 137 (137-145) mmol/L Potassium 4.9 (3.5-5.1) mmol/L Chloride 110 H (98-107) mmol/L Carbon Dioxide 21 L (22-30) mmol/L Anion Gap 6 mmol/L BUN 29 H (7-17) mg/dL Creatinine 1.20 H (0.52-1.04) mg/dL Est GFR (CKD-EPI)AfAm 58 (>60 ml/min/1.73 sqM) Est GFR (CKD-EPI)NonAf 50 (>60 ml/min/1.73 sqM) Glucose 111 H (74-99) mg/dL Calcium 9.4 (8.4-10.2) mg/dL Blood Type Recheck Bld Type Recheck Status Spec Expiration Date Disposition Clinical Impression: Diverticulitis Disposition: HOME SELF-CARE Condition: Fair Instructions (If sedation given, give patient instructions): Diverticulitis (ED) Prescriptions: Amoxic-Pot Clav 875-125Mg [Augmentin 875-125] 1 tab PO Q8H 5 Days #15 tab HYDROcodone/APAP 5-325MG [[place] 5-325] 1 tab PO Q6HR PRN 3 Days #12 tab PRN Reason: Severe Pain Ondansetron Odt [Zofran Odt] 4 mg PO Q8HR PRN #12 tab PRN Reason: Nausea Is patient prescribed a controlled substance at d/c from ED?: Yes If prescribed controlled substance>3 days was MAPS reviewed?: Prescribed <3 Days Referrals: Sonam Longoria MD [Primary Care Provider] - 1-2 days Time of Disposition: 14:41
[2024-03-18 13:47] LABS: African American GFR (CKD) 58 (>60 ml/min/1.73 sqM); Anion Gap 6 mmol/L; Blood Urea Nitrogen 29 mg/dL (7-17); Calcium 9.4 mg/dL (8.4-10.2); Carbon Dioxide 21 mmol/L (22-30); Chloride 110 mmol/L (98-107); Glucose 111 mg/dL (74-99); INR 0.9 (<1.2); Non-African American GFR(CKD) 50 (>60 ml/min/1.73 sqM); Partial Thromboplastin Time 22.2 sec (22.0-30.0); Prothrombin Time 10.1 sec (10.0-12.5); Sodium 137 mmol/L (137-145)
[2024-03-18 13:51] LABS: Potassium 4.9 mmol/L (3.5-5.1)
[2024-03-18 13:55] LABS: Basophils % (A) 0 %; Eosinophils # (A) 0.1 k/uL (0-0.7); Eosinophils % (A) 1 %; HCT 39.1 % (34.0-46.0); HGB 12.4 gm/dL (11.4-16.0); Lymphocytes # (A) 1.3 k/uL (1.0-4.8); Lymphocytes % (A) 11 %; MCH 31.7 pg (25.0-35.0); MCHC 31.8 g/dL (31.0-37.0); MCV 99.6 fL (80.0-100.0); Mean Platelet Volume 10.1; Monocytes # (A) 0.6 k/uL (0-1.0); Monocytes % (A) 5 %; Neutrophils # (A) 9.5 k/uL (1.3-7.7); Neutrophils % (A) 82 %; Platelet Count 191 k/uL (150-450); RBC 3.92 m/uL (3.80-5.40); WBC 11.6 k/uL (3.8-10.6)
--- NOTE | 2024-03-18 14:29 | CT ---
EXAMINATION TYPE: CT abdomen pelvis w con DATE OF EXAM: 03/18/2024 COMPARISON: 07/11/2023 HISTORY: LLQ abdominal pain CT DLP: 1414.9 mGycm Automated exposure control for dose reduction was used. TECHNIQUE: Helical acquisition of images was performed from the lung bases through the pelvis. CONTRAST: Performed without Oral Contrast and with IV Contrast, patient injected with 100 ml mL of Isovue 300. FINDINGS: The lung bases are clear. The gallbladder is normal without distention, wall thickening, pericholecystic fluid or gallstones. T here is no biliary ductal dilatation. There is no focal mass or organomegaly involving the liver, pancreas, spleen or adrenal glands. There is no solid renal mass or hydronephrosis and there is homogeneous contrast enhancement of the r enal parenchyma. The caliber the abdominal aorta is normal is no retroperitoneal adenopathy or hemorr tono. The bowel is normal in caliber and is no evidence of obstruction. There are mild to moderate inflammatory changes involving the sigmoid and descending colon consistent with acute diverticulitis. There is no abscess. There is no free intraperitoneal air or fluid. No pelvic mass, free fluid, abscess or adenopathy. The osseous structures and soft tissues are intact. IMPRESSION: Acute diverticulitis of the descending and sigmoid colon without bowel obstruction, abscess, free int raperitoneal air or fluid. No other significant amount is seen within the abdomen or pelvis.
[2024-03-18] MEDS: KETOROLAC 15 MG/ML 1 ML VIAL IVP STA (15:07)
[2024-03-18 15:11] VITALS: RESP 18; TEMP 98
[2024-03-18 15:55] VITALS: BP 104/76; PULSE 82
== END 2024-03-18 15:19 | disposition home or self-care (01) ==
LOC: EC 12:09
DX: K57.32 Diverticulitis of large intestine without perforation or abscess without bleeding (principal); F17.200 Nicotine dependence, unspecified, uncomplicated; Z88.2 Allergy status to sulfonamides
CPT/HCPCS: 36415; 86900; 86901; 80048; 85025; 85610; 85730; 86850; 74177; 99285; 96374; J1885; Q9967

== ENCOUNTER 2024-06-01 08:11 | Day surgery (SDC) | payer MEDICARE, OTHER ==
[2024-05-28 11:24] VITALS: BMI 36.6
[~2024-06-01 08:11] MED LIST changes: -ALPRAZolam 0.25 MG TAB PO PRN; -ALPRAZolam 0.5 MG TAB PO PRN; -ASPIRIN 325 MG TAB PO STA; +LIDOCAINE 1% (10MG/ML) FOR IV START INTRADERMA PRN; -NITROGLYCERIN SL TABS 0.4 MG TAB SUBLINGUAL PRN; -SODIUM CHLORIDE 0.9% 1,000 ML in EMPTY BAG 1 BAG IV SCH
[2024-06-01 08:48] VITALS: TEMP 98.3
[2024-06-01] MEDS: LACTATED RINGERS 1,000 ML IV SCH (08:57)
[2024-06-01] MEDS: IV FLUID CONTINUATION 1,000 ML IV ONE (08:58)
[2024-06-01] MEDS ORDERED: PROPOFOL 10 MG/ML 20 ML VIAL IV ONE (09:03)
--- NOTE | 2024-06-01 09:18 | P.PCN ---
Date of Procedure: 06/01/24 Procedure(s) Performed: BRIEF HISTORY: Patient is a 58-year-old pleasant white female scheduled for an elective colonoscopy as a part of recent episode of acute sigmoid diverticulitis. PROCEDURE PERFORMED: Colonoscopy with biopsy. PREOPERATIVE DIAGNOSIS: Recent episode of acute sigmoid diverticulitis. IV sedation per Anesthesia. PROCEDURE: After informed consent was obtained, the patient, was brought into the endoscopy unit. IV sedation was administered by Anesthesia under continuous monitoring. Digital rectal examination was normal. Initially the Olympus CF-160 flexible video colonoscope was then inserted in the rectum, gradually advanced into the cecum without any difficulty. Careful examination was performed as the scope was gradually being withdrawn. Ileocecal valve and the appendiceal orifice were visualized and appeared normal. Prep was excellent. Mucosa of the cecum, ascending colon, transverse colon, descending colon, sigmoid colon, and rectum appeared normal. A 4 mm sigmoid colon polyp that was removed by cold biopsy. Scattered diverticulosis. Retroflexion was performed in the rectum and no lesions were seen. The patient tolerated the procedure well. IMPRESSION: 4 mm sigmoid colon polyp status post cold biopsy Scattered sigmoid diverticulosis RECOMMENDATIONS: Findings of this examination were discussed with the patient as well as her family. She was advised to follow-up with the biopsy results. If the biopsy reveals adenoma she can have repeat colonoscopy in 5 years.
[2024-06-01 09:35] VITALS: BP 100/64; PULSE 75; RESP 18
== END 2024-06-01 10:11 | disposition home or self-care (01) ==
LOC: ORWHC2ENDO 08:11
PROVIDERS: ATTEND Internal Medicine Gastroenterology
DX: K63.5 Polyp of colon (principal); I10 Essential (primary) hypertension; J45.909 Unspecified asthma, uncomplicated; E78.5 Hyperlipidemia, unspecified; F17.200 Nicotine dependence, unspecified, uncomplicated; F41.9 Anxiety disorder, unspecified; F32.A Depression, unspecified; M06.9 Rheumatoid arthritis, unspecified; N39.3 Stress incontinence (female) (male); I25.42 Coronary artery dissection; Z88.2 Allergy status to sulfonamides; Z79.899 Other long term (current) drug therapy; Z79.82 Long term (current) use of aspirin; Z79.891 Long term (current) use of opiate analgesic; Z79.1 Long term (current) use of non-steroidal anti-inflammatories (NSAID); Z79.83 Long term (current) use of bisphosphonates
CPT/HCPCS: 88305; 45380; J2704

== ENCOUNTER → 2024-09-23 | Outpatient (CLI) | payer MEDICARE, OTHER ==
--- NOTE | 2024-09-23 16:00 | MR ---
EXAMINATION TYPE: MR cspine/lspine wo con DATE OF EXAM: 09/23/2024 9:17 AM COMPARISON: 03/18/2024. 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 IV Contrast: mL (None, if empty) FINDINGS: CERVICAL: Alignment: The cervical vertebral bodies have preserved heights. Alignment is within normal limits gi alexa patient positioning. Transitional vertebrae at L5. Bones: Bone signal is within normal limits. No abnormal bone marrow edema on inversion recovery seque nces. Cord: The spinal cord is unremarkable with regards to their signal intensity and morphology. Discs: Intervertebral disc signal is maintained. C2-C3: No significant disc pathology. The spinal canal is patent. No neural foraminal stenosis. C3-C4: No significant disc pathology. The spinal canal is patent. No neural foraminal stenosis. C4-C5: No significant disc pathology. The spinal canal is patent. No neural foraminal stenosis. C5-C6: No significant disc pathology. The spinal canal is patent. No neural foraminal stenosis. C6-C7: No significant disc pathology. The spinal canal is patent. No neural foraminal stenosis. C7-T1: No significant disc pathology. The spinal canal is patent. No neural foraminal stenosis. Other: None. LUMBAR: Alignment: The lumbar vertebral bodies have preserved heights and alignment. Transitional vertebrae present. Cord: The conus medullaris and the distal spinal cord appear unremarkable with regards to their signa l intensity and morphology. Bones/Discs: Mild degeneration changes throughout the spine with osteophyte formation and facet joint arthropathy. Intervertebral disc signal is maintained. T12-L1: No evidence of significant spinal canal stenosis or neural foraminal stenosis. L1-L2: No evidence of significant spinal canal stenosis or neural foraminal stenosis. L2-L3: No evidence of significant spinal canal stenosis or neural foraminal stenosis. L3-L4: No evidence of significant spinal canal stenosis or neural foraminal stenosis. L4-L5: No evidence of significant spinal canal stenosis or neural foraminal stenosis. Bilateral facet joint effusions. L5-S1: The disc is rounded posterior morphology without significant spinal canal stenosis. Facet john nt arthropathy with moderate to severe neural foraminal stenosis. Bilateral facet joint effusions. No significant spinal canal or neural foraminal stenosis in the remainder of the visualized levels. Other findings: None. IMPRESSION: 1. No definitive evidence of disc herniation or significant spinal canal stenosis. 2. Mild disc degeneration with associated osteoarthritic changes. No evidence for significant neural foraminal stenosis. 3. 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 [facility], Workstation: [id number], 09/23/2024 3:58 PM
== END | disposition home or self-care (01) ==
LOC: RADMRIMAIN 07:59
PROVIDERS: ATTEND Orthopaedic Surgery
DX: M47.816 Spondylosis without myelopathy or radiculopathy, lumbar region (principal); M54.16 Radiculopathy, lumbar region; M54.2 Cervicalgia; M54.89 Other dorsalgia; G95.9 Disease of spinal cord, unspecified
CPT/HCPCS: 72141; 72148

== ENCOUNTER → 2024-12-09 | Outpatient (CLI) | payer MEDICARE, OTHER ==
--- NOTE | 2024-12-09 11:58 | MM ---
Reason for Exam: Screening (asymptomatic). Last mammogram was performed 1 year(s) and 1 month(s) ago. Patient History: Menarche at age 13. First Full-Term at age 17. Postmenopausal. Risk Values: Rosemary 5 year model risk: 1.0%. NCI Lifetime model risk: 5.5%. Prior Study Comparison: 10/16/2023 Bilateral MG 3D screening mammo w/cad, [facility]. Tissue Density: The breasts are heterogeneously dense, which may obscure small masses. Findings: Analyzed By CAD. Right breast: Focal asymmetry posterior nipple 3.4 cm from the nipple measuring 8 mm. Left breast: There is no suspicious group of microcalcifications or new suspicious mass. Overall Assessment: Incomplete: need additional imaging evaluation, BI-RAD 0 Management: Diagnostic Breast Ultrasound of the right breast. Diagnostic Mammogram of the right breast. [facility] will attempt to contact patient to return for supplemental views and ultrasound if indicated. Patient should continue monthly self-breast exams. A clinical breast exam by your physician is recommended on an annual basis. This exam should not preclude additional follow-up of suspicious palpable abnormalities. Note on Rosemary scores and lifetime risk: 1. A Rosemary score greater than 3% is considered moderate risk. If this is the case, consider specialist referral to assess eligibility for a risk reducing agent. 2. If overall lifetime risk for the development of breast cancer is 20% or higher, the patient may qualify for future screening with alternating mammogram and breast MRI. [facility], , 12/09/2024 11:56 AM. Electronically signed and approved by: Donaldo Garnett DO
== END | disposition home or self-care (01) ==
LOC: RADMAMWWP 11:19
PROVIDERS: ATTEND Family Medicine
DX: Z12.31 Encounter for screening mammogram for malignant neoplasm of breast (principal); R92.333 Mammographic heterogeneous density, bilateral breasts; Z78.0 Asymptomatic menopausal state
CPT/HCPCS: 77067

== ENCOUNTER → 2025-01-07 | Outpatient (CLI) | payer MEDICARE ==
--- NOTE | 2025-01-07 08:36 | USB ---
Reason for Exam: Additional evaluation requested from abnormal screening. Patient History: Menarche at age 13. First Full-Term at age 17. Postmenopausal. Risk Values: Rosemary 5 year model risk: 1.0%. NCI Lifetime model risk: 5.5%. Prior Study Comparison: 10/16/2023 Bilateral MG 3D screening mammo w/cad, [facility]. 12/09/2024 Bilateral MG screening mammo w CAD, [facility]. Findings: The axilla of the right breast and the retroareolar of the right breast were scanned. Technique utilized:US breast workup limited RT Image; Ultrasound imaging of: Area of concern, retroareolar region and axilla. No evidence for organizing fluid collection or mass. Overall Assessment: Negative, BI-RAD 1 Management: Screening Mammogram of both breasts in 1 year. A clinical breast exam by your physician is recommended on an annual basis and results should be correlated with mammographic findings. This exam should not preclude additional follow-up of suspicious palpable abnormalities. Results were given to the patient verbally at the time of exam. [facility], , 01/07/2025 8:33 AM. Electronically signed and approved by: Donaldo Garnett DO
--- NOTE | 2025-01-07 08:36 | MM ---
Reason for Exam: Additional evaluation requested from abnormal screening. Last screening mammogram was performed less than 1 month ago. Patient History: Menarche at age 13. First Full-Term at age 17. Postmenopausal. Risk Values: Rosemary 5 year model risk: 1.0%. NCI Lifetime model risk: 5.5%. Prior Study Comparison: 10/16/2023 Bilateral MG 3D screening mammo w/cad, [facility]. 12/09/2024 Bilateral MG screening mammo w CAD, [facility]. Tissue Density: Right: The breasts are heterogeneously dense, which may obscure small masses. Findings: Analyzed By CAD. Area of concern may partially compress out out on spot compression imaging. No suspicious masses, calcifications or distortions. Ultrasound imaging for completeness. Overall Assessment: Incomplete: need additional imaging evaluation, BI-RAD 0 Management: Diagnostic Breast Ultrasound of the right breast. Results were given to the patient verbally at the time of exam. Patient should continue monthly self-breast exams. A clinical breast exam by your physician is recommended on an annual basis. This exam should not preclude additional follow-up of suspicious palpable abnormalities. Note on Rosemary scores and lifetime risk: 1. A Rosemary score greater than 3% is considered moderate risk. If this is the case, consider specialist referral to assess eligibility for a risk reducing agent. 2. If overall lifetime risk for the development of breast cancer is 20% or higher, the patient may qualify for future screening with alternating mammogram and breast MRI. [facility], , 01/07/2025 8:32 AM. Electronically signed and approved by: Donaldo Garnett DO
== END | disposition home or self-care (01) ==
LOC: RADMAMWWP 07:56
PROVIDERS: ATTEND Family Medicine
DX: R92.8 Other abnormal and inconclusive findings on diagnostic imaging of breast (principal); R92.331 Mammographic heterogeneous density, right breast; Z78.0 Asymptomatic menopausal state
CPT/HCPCS: 77065; 76642; G0279; 77061

== ENCOUNTER → 2025-01-24 | Outpatient (CLI) | payer MEDICARE ==
[2025-01-24 10:04] VITALS: BP 141/62; RESP 17; TEMP 98.2
--- NOTE | 2025-01-24 15:16 | P.PAINPG ---
Objective - Vital Signs Vital signs: Vital Signs Temp 98.2 F 01/24/25 10:01 Pulse Resp 17 01/24/25 10:01 BP 141/62 01/24/25 10:01 Pulse Ox FiO2 PQRS Measure Charge Sheet Mode of Arrival: Ambulatory Comment: HISTORY OF PRESENT ILLNESS: A 59 yr old female as a referral from Dr Cage presents today w severe and chronic LBP > 6 mo secondary to radiculopathy, spondylosis and facet arthropathy without myelopathy for evaluation. Pt states pain level is provoked at 8 /10 in intensity, constant, localized in the lumbar spine, predominantly axial, achy in character w occasional shooting pain towards the mid back. Pain is provoked by over activity. Pain is alleviated by PT x 6 wks which ended in Dec 2024, physician guided home stretches daily since Dec 2024, medications, topical, heat, repositioning and rest . Oswestry axial pain score at 24. PMH: OA, CAD, Hyperlipidemia, HTN, RA, MDD/ Anxiety PSH: Colonoscopy (2023), Heart Catheterization With Stent (2022), BL Total Knee Arthroplasties, Tubal Ligation SH: Daily tobacco use, Occ ETOH use, No illicit drug use FH: Fa- CAD, COPD, MA, PVD. Mo- CRF/ age 62. All: See list Meds: See list incl Neurontin, Celebrex, Ibu, Icy-Hot REVIEW OF ORGAN SYSTEMS: CONSTITUTIONAL: No fevers or chills. No recent weight loss. NEUROLOGICAL: + numbness and tingling along the distal extremities. No seizure disorders or headaches. MUSCULOSKELETAL: + pain PSYCHIATRIC: Denies current depression or suicidal thoughts. Physical Examinations : Constitutional : Cooperative , not in acute distress . Neurologic : Cranial nerve II to XII intact. No focal neurological deficits. Psychiatric : alert & oriented x 3. Matching mood & appropriate affect. Judgment & insight intact. Musculoskeletal : Cervical Spine Motor strength in the deltoid and biceps: Normal right side. Normal Left side Motor strength biceps and the wrist extensors: Normal right side . Normal left side Motor strength in the triceps muscle: Normal right side. Normal left side Deep tendon reflexes: Normal at the biceps. Normal at Brachioradialis. Normal at triceps Vertebral body tenderness to deep palpation over Cervical facet loading test: positive bilaterally Spurling test: positive bilaterally Neck distraction test: positive bilaterally Sia sign: positive bilaterally Lumbar spine Motor strength lower extremities ,thigh and legs 5/5 Right side , 5/5 Left side Deep tendon reflexes : Normal Knee Jerk. Normal Ankle Jerk Vertebral body tenderness over L5 Pleitez Test positive BL L5-S1 Lumbar facet Loading Test: positive Right / positive Left Range of motion of the lumbar spine Flexion 30 degrees, extension 10 degrees Straight Leg Raise test: Left/ Right positive at degrees Iliana test: positive right / positive left. Severe tenderness over the Sacroiliac joint on the Right / Left sides Gaenslen test: positive bilaterally Seated flexion test: positive bilaterally. Sacral spine : Severe tenderness over the Sacroiliac joint: right side / left side Range of motion: Flexion of the lumbar spine <60 degrees Range of motion: Extension of the lumbar spine <20 degrees Gaenslen's Test positive Iliana test: positive right side / left side Thigh Thrust Test Sacral Thrust Test Imaging: MRI non contrast lumbar spine from 09/23/2024 reviewed MRI non contrast cervical spine from 09/23/2024 reviewed Assessment/ Plan : L5-S1 radiculopathy Recommendation of NATACHA L5-S1 #1. Risks, benefits of procedure discussed and patient verbalized understanding. Admits to anti- coagulant use or medical history of diabetes. Protocol for discontinuation/ continuation of medications p young procedure discussed. All questions answered. I have spent greater than 30 minutes on patient care today. Dr Matthew was available by phone for the evaluation of this patient. The time was used to review the medical records including relevant urine studies and Prescription history (MAPs), review of the available imaging, evaluation and examination of the patient, coordination of care with the medical staff and if applicable referring physicians, as well as creation of the medical record - Pain Location Lower Back Non-Pharmacological Interventions: Relaxation Technique PQRS Narrative: Blood Pressure 141/62 Pain Intensity [Lower Back] 8 Scale Used Numeric (1 - 10) Hx Alcohol Use (MH) No Home Medications: Ambulatory Orders ALPRAZolam [Xanax] 0.5 mg PO BID PRN 01/31/23 Aspirin 81 mg PO 1700 01/31/23 Cyclobenzaprine [Flexeril] 10 mg PO HS PRN 01/31/23 Diclofenac Sodium [Voltaren] 75 mg PO BID 01/31/23 Ergocalciferol [Vitamin D2 (1250 Mcg = 36315 Iu)] 1,250 mcg PO DELANEY 01/31/23 FLUoxetine HCL [PROzac] 40 mg PO QAM 01/31/23 Gabapentin [Neurontin] 300 mg PO TID 01/31/23 Multivitamins, Thera [Multivitamin (formulary)] 1 tab PO QAM 01/31/23 Oxybutynin ER [Ditropan XL] 10 mg PO QAM 01/31/23 amLODIPine [Norvasc] 5 mg PO 1700 01/31/23 buPROPion HCL [buPROPion HCL SR] 150 mg PO BID 01/31/23 lisinopriL [Zestril] 40 mg PO QAM 01/31/23 Atorvastatin [Lipitor] 80 mg PO HS tab 02/03/23 Metoprolol Tartrate [Lopressor] 12.5 mg PO BID tab 02/03/23 Controlled Substance Measures - Controlled Substance Measures Is patient prescribed a controlled substance at discharge?: No
== END ==
LOC: PNWHC3 09:40
PROVIDERS: ATTEND Specialist
DX: M54.17 Radiculopathy, lumbosacral region (principal); Z88.2 Allergy status to sulfonamides
CPT/HCPCS: 99202

== ENCOUNTER 2025-02-17 09:28 | Day surgery (SDC) | payer MEDICARE ==
[2025-02-17] MEDS ORDERED: LACTATED RINGERS 1,000 ML IV SCH (10:18)
[2025-02-17 10:27] VITALS: TEMP 97.7
[2025-02-17] MEDS ORDERED: methylPREDNISolone ACETATE 80 MG/ML 1 ML VIAL ONE (11:17)
[2025-02-17] MEDS ORDERED: IOPAMIDOL M300 15ML VIAL ONE (11:17)
--- NOTE | 2025-02-17 11:37 | P.PCN ---
Description of Procedure: PREOPERATIVE DIAGNOSIS: 1- Lumbar Degenerative Disc Diseases 2-Lumbar spondylosis with Facet arthropathy without myelopathy. 3-lumbar spinal stenosis POSTOPERATIVE DIAGNOSIS: 1-lumbar degenerative disc disease. 2-lumbar spondylosis with facet arthropathy without myelopathy. 3-lumbar spinal stenosis. PROCEDURE Injection of radio contrast material into L5-S1 interspace, interpretation of epidurogram, injection of steroid at L5-S1 epidural space under fluoroscopic guidance. ANESTHESIA: Lidocaine 1% subcutaneously. In OR continuous pulse ox, EKG, blood pressure and verbal communication was maintained with the patient. EBL: Minimal PROCEDURE INDICATION: Before the procedure were discussed with the patient detailed procedure, alternatives, complications including infection, bleeding, nerve damage, paralysis all of which could be permanent. Patient understands and all questions were answered. PROCEDURE DESCRIPTION : After getting consent, patient in OR in prone position. Back was prepped with chlorhexidine and draped in sterile fashion. After injecting 10 mL of 1% lidocaine subcutaneously, a 20-gauge Tuohy needle was introduced at L5-S1 interspace with loss of resistance technique using a syringe filled with air. Negative CSF, negative blood, negative paresthesia. Needle position was confirmed with AP and lateral view of the fluoroscope. After repeat negative aspiration 2 mL of Omnipaque 200 water soluble contrast was injected. Contrast was noted in the epidural space. No contrast was noted into intrathecal or intravascular space. After repeat negative aspiration 6 mL solution was injected intermittently which consists of 5 mL of preservative-free normal saline mixed with 1 mL of 80 mg Depo-Medrol. Needle was withdrawn intact. Skin was cleansed and Band-Aids was applied. DISPOSITION / PLANS: The patient tolerated the procedure well. No complication. The patient was placed in a supine position and transferred to the recovery area in a stable condition for observation. There was no evidence of lower extremity motor or sensory deficit after the procedure. Patient was discharged from the recovery room after meeting discharge criteria. Home discharge instructions were given to the patient by the staff. The patient was reexamined prior to discharge. The patient will schedule a follow up in the clinic in 2-4 weeks.
[2025-02-17 11:51] VITALS: BP 117/73; PULSE 66; RESP 14
--- NOTE | 2025-02-17 12:33 | FL ---
Fluoroscopy INDICATION: Pain FINDINGS: Fluoroscopy time: 15 seconds. Total dose area product (DAP) in uGy*m?, mGy*cm? (or similar): 0.72532 Images obtained: 3. Images document needle directed towards the sacral canal IMPRESSION: 1. Documentation of fluoroscopy. [facility], , 02/17/2025 12:31 PM
== END 2025-02-17 12:06 | disposition home or self-care (01) ==
LOC: ORPAIN 09:28
PROVIDERS: ATTEND Pain Medicine Interventional Pain Medicine
DX: M48.061 Spinal stenosis, lumbar region without neurogenic claudication (principal); M47.816 Spondylosis without myelopathy or radiculopathy, lumbar region; M51.369 Other intervertebral disc degeneration, lumbar region without mention of lumbar back pain or lower extremity pain; Z88.2 Allergy status to sulfonamides
CPT/HCPCS: 62323; Q9967; J1010

== ENCOUNTER 2025-03-08 18:20 | Observation (INO) | payer MEDICARE, OTHER ==
--- NOTE | 2025-03-08 18:49 | ED ---
SOB HPI - General Source: patient Limitations: no limitations <Nani Parry - Last Filed: 03/08/25 22:26> <Marleny Roach - Last Filed: 03/10/25 10:36> - General Chief Complaint: Shortness of Breath Stated Complaint: SOB Time Seen by Provider: 03/08/25 18:26 - History of Present Illness Initial Comments: 59-year-old female with history of COPD not on home oxygen presenting to the ED today with chief complaint of shortness of breath. Patient reports she currently smokes 4 to 10 cigarettes/day for the last 40 years. Patient reports at home she has albuterol inhaler and nebulizer. Last treatment was 45 minutes prior to first presenting to the ER. Patient denies any chest pain, fevers, chills, nausea, vomiting, diarrhea. (Nani Parry) - Related Data Home Medications Medication Instructions Recorded Confirmed ALPRAZolam [Xanax] 0.5 mg PO Q12H PRN 01/31/23 03/10/25 Cyclobenzaprine [Flexeril] 10 mg PO Q8H PRN 01/31/23 03/10/25 Diclofenac Sodium [Voltaren] 75 mg PO BID PRN 01/31/23 03/10/25 Ergocalciferol [Vitamin D2 (1250 1,250 mcg PO DELANEY 01/31/23 03/10/25 Mcg = 50019 Iu)] FLUoxetine HCL [PROzac] 40 mg PO DAILY 01/31/23 03/10/25 Gabapentin [Neurontin] 300 mg PO TID 01/31/23 03/10/25 Oxybutynin ER [Ditropan XL] 10 mg PO DAILY 01/31/23 03/10/25 amLODIPine [Norvasc] 5 mg PO DAILY 01/31/23 03/10/25 buPROPion HCL [buPROPion HCL SR] 150 mg PO BID 01/31/23 03/10/25 lisinopriL [Zestril] 40 mg PO DAILY 01/31/23 03/10/25 Albuterol Inhaler [Ventolin Hfa 2 puff INHALATION RT-Q4H PRN 03/08/25 03/10/25 Inhaler] Atorvastatin [Lipitor] 80 mg PO W/SUPPER 03/08/25 03/10/25 Celecoxib [CeleBREX] 200 mg PO BID 03/08/25 03/10/25 Previous Rx's Medication Instructions Recorded Metoprolol Tartrate [Lopressor] 12.5 mg PO BID tab 02/03/23 Ipratropium-Albuterol Nebulize 3 ml INHALATION RT-QID 30 Days 03/09/25 [Duoneb 0.5 mg-3 mg/3 ml Soln] #120 each predniSONE 50 mg PO DAILY 4 Days #4 tab 03/09/25 Diclofenac Sodium Gel [Voltaren 1% 50 gm TOPICAL BID 30 Days #1 each 03/10/25 Gel] Allergies Allergy/AdvReac Type Severity Reaction Status Date / Time Sulfa (Sulfonamide Allergy Severe Anaphylaxis Verified 03/10/25 09:47 Antibiotics) Review of Systems ROS Other: All systems not noted in ROS Statement are negative. Constitutional: Denies: fever, chills ENT: Denies: throat pain Respiratory: Reports: cough, dyspnea, wheezes Cardiovascular: Denies: chest pain, palpitations Endocrine: Denies: fatigue Gastrointestinal: Denies: abdominal pain, nausea, vomiting Genitourinary: Denies: urgency, dysuria Musculoskeletal: Denies: back pain Skin: Denies: rash, lesions Neurological: Denies: headache, weakness <Nani Parry - Last Filed: 03/08/25 22:26> ROS Other: All systems not noted in ROS Statement are negative. <Marleny Roach - Last Filed: 03/10/25 10:36> ROS Statement: Those systems with pertinent positive or pertinent negative responses have been documented in the HPI. Past Medical History Past Medical History: Coronary Artery Disease (CAD), Hyperlipidemia, Hypertension, Osteoarthritis (OA), Rheumatoid Arthritis (RA) Additional Past Medical History / Comment(s): stress incontinence History of Any Multi-Drug Resistant Organisms: None Reported Past Surgical History: Heart Catheterization With Stent, Joint Replacement, Tubal Ligation Additional Past Surgical History / Comment(s): Total bilateral knee arthroplasies Past Anesthesia/Blood Transfusion Reactions: No Reported Reaction Date of Last Stent Placement:: 01/2023 Past Psychological History: Anxiety, Depression Smoking Status: Current every day smoker - Past Family History Father Family Medical History: Cancer, COPD, Coronary Artery Disease (CAD), CVA/TIA, Hyperlipidemia, Hypertension, Myocardial Infarction ([place]), Vascular Disorder Additional Family Medical History / Comment(s): AAA, aneurysm. skin cancer Mother Family Medical History: Renal Disease Additional Family Medical History / Comment(s): at 62 yrs from kidney p salo. Sister(s) Family Medical History: Cancer Additional Family Medical History / Comment(s): Small cell lung cancer <Nani Parry - Last Filed: 03/08/25 22:26> General Exam Limitations: no limitations General appearance: alert Respiratory exam: Present: wheezes Cardiovascular Exam: Present: regular rate, normal rhythm GI/Abdominal exam: Present: soft. Absent: distended, tenderness Neurological exam: Present: alert, oriented X3 Psychiatric exam: Present: normal affect, normal mood Skin exam: Present: warm, dry, intact <Nani Parry - Last Filed: 03/08/25 22:26> Course Vital Signs 03/08/25 03/08/25 03/08/25 18:22 19:03 19:12 Temperature 97.5 F L Pulse Rate 108 H 85 88 Respiratory 24 20 24 Rate Blood Pressure 147/86 O2 Sat by Pulse 96 Oximetry 03/08/25 03/08/25 03/08/25 19:22 20:13 21:01 Temperature Pulse Rate 93 81 77 Respiratory 24 22 Rate Blood Pressure 132/84 111/65 O2 Sat by Pulse 95 95 Oximetry 03/08/25 03/08/25 21:04 23:21 Temperature 97.8 F Pulse Rate 72 86 Respiratory 19 22 Rate Blood Pressure 110/69 120/63 O2 Sat by Pulse 93 L 94 L Oximetry Medical Decision Making - Lab Data Result diagrams: 03/08/25 19:22 03/08/25 19:22 <Nani Parry - Last Filed: 03/08/25 22:26> - Lab Data Result diagrams: 03/09/25 06:43 03/09/25 08:55 <Marleny Roach - Last Filed: 03/10/25 10:36> - Medical Decision Making Was pt. sent in by a medical professional or institution (, PA, BILLING SPECIALIST, urgent care, hospital, or prison...) When possible be specific @ -No Did you speak to anyone other than the patient for history (EMS, parent, family, police, friend...)? What history was obtained from this source @ -No Did you review nursing and triage notes (agree or disagree)? Why? @ -I reviewed and agree with nursing and triage notes Were old charts reviewed (outside hosp., previous admission, EMS record, old EKG, old radiological studies, urgent care reports/EKG's, prison records)? Report findings @ -No old charts were reviewed Differential Diagnosis? @ -Differential Dyspnea: Coronary syndrome, arrhythmia, tamponade, asthma, COPD, pulmonary embolism, pneumonia, pneumothorax, pulmonary effusion, anaphylaxis, diabetic ketoacidosis, flailed chest, pulmonary contusion, diaphragmatic rupture, anemia, neuromuscular, this is not meant to be an all-inclusive list. EKG interpreted by me (3pts min.). @ -Sinus rhythm, rate 81 bpm, no acute ST-T wave changes suggestive of ischemia. X-rays interpreted by me (1pt min.). @ -Chest x-ray was unremarkable for consolidation, pleural effusion, cardiomegaly. CT interpreted by me (1pt min.). @ -None done U/S interpreted by me (1pt. min.). @ -None done What testing was considered but not performed or refused? (CT, X-rays, U/S, labs)? Why? @ -None What meds were considered but not given or refused? Why? @ -None Did you discuss the management of the patient with other professionals (professionals i.e. , PA, BILLING SPECIALIST, lab, RT, psych nurse, social media analyst, game farm supervisor, teacher, senior commercial loan officer, high risk case manager)? Give summary @ -Case was discussed with ED attending physician Dr. Roach. Was smoking cessation discussed for >3mins.? @ -No Was critical care preformed (if so, how long)? @ -No Were there social determinants of health that impacted care today? How? (Homelessness, low income, unemployed, alcoholism, drug addiction, transportation, low edu. Level, literacy, decrease access to med. care, retirement, rehab)? @ -No Was there de-escalation of care discussed even if they declined (Discuss DNR or withdrawal of care, Hospice)? DNR status @ -No What co-morbidities impacted this encounter? (DM, HTN, Smoking, COPD, CAD, Cancer, CVA, ARF, Chemo, Hep., AIDS, mental health diagnosis, sleep apnea, morbid obesity)? @ -None Was patient admitted / discharged? Hospital course, mention meds given and route, prescriptions, significant lab abnormalities, going to OR and other pertinent info. @ -Patient received a few breathing treatments in the ER and had some improvement. Received a dose of steroids had some improvement. Patient's exam still does show some wheezing and increased work of breathing so patient will be admitted for observation. Undiagnosed new problem with uncertain prognosis? @ -No Drug Therapy requiring intensive monitoring for toxicity (Heparin, Nitro, Insulin, Cardizem)? @ -No Were any procedures done? @ -No Diagnosis/symptom? @ -COPD exacerbation Acute, or Chronic, or Acute on Chronic? @ -Acute Uncomplicated (without systemic symptoms) or Complicated (systemic symptoms)? @ -Default Side effects of treatment? @ -No Exacerbation, Progression, or Severe Exacerbation? @ -No Poses a threat to life or bodily function? How? (Chest pain, [place], [place], pneumonia, PE, COPD, DKA, ARF, appy, cholecystitis, CVA, Diverticulitis, Homicidal, Suicidal, threat to staff... and all critical care pts) @ -Yes, increased work of breathing suggests decreased oxygenation and therefore perfusion which can cause endorgan damage. (Nani Parry) I personally saw the patient and performed the critical portion of the service. I discussed the patient care with the resident physician. I directed management, care planning and final disposition of the patient. This includes, but not limited to, review of all lab work, radiological studies, EKG's, consultations, vital signs, and nursing notes. EKG interpreted by me (3pts min.) @Sinus rhythm, rate 81 bpm intervals within acceptable limits, normal axis, no ST elevations or depressions, no ischemic changes X-Rays interpreted by me (1 pt min.) @I personally reviewed chest x-ray I see no evidence of cardiomegaly, consolidations or pleural effusions I agree with radiologist interpretation Critical care time of 35 minutes excluding separately billable procedures was spent in conjunction with critical care activities provided by the Resident and Attending simultaneously. I was present during [no procedures] for all critical portions of the procedure and as immediately available to furnish service during the entire procedure. (Malreny Roach) - Lab Data Lab Results 03/08/25 03/08/25 03/08/25 Range/Units 19:22 19:22 19:22 WBC 13.63 H (4.50-10.00) 10*3/uL RBC 3.91 L (4.10-5.20) 10*6/uL Hgb 12.6 (12.0-15.0) g/dL Hct 37.4 (37.2-46.3) % MCV 95.7 (80.0-97.0) fL MCH 32.2 H (27.0-32.0) pg MCHC 33.7 (32.0-37.0) g/dL Plt Count 227 (140-440) 10*3/uL MPV 11.8 (9.5-12.2) fL Immature Gran % (Auto) 0.4 % Neutrophils % 70.2 % Lymphocytes % 21.2 % Monocytes % 6.6 % Eosinophils % 1.2 % Basophils % 0.4 % Immature Gran # 0.06 H (0.00-0.04) 10*3/uL Neutrophils # 9.56 H (1.80-7.70) 10*3/uL Lymphocytes # 2.89 (0.90-5.00) 10*3/uL Monocytes # 0.90 (0.20-1.00) 10*3/uL Eosinophils # 0.16 (0.04-0.35) 10*3/uL Basophils # 0.06 (0.00-0.10) 10*3/uL PT 9.9 L (10.0-12.5) sec INR 0.9 (<1.2) APTT 22.3 (22.0-30.0) sec Sodium 136 L (137-145) mmol/L Potassium 4.3 (3.5-5.1) mmol/L Chloride 104 (98-107) mmol/L Carbon Dioxide 24 (22-30) mmol/L Anion Gap 8 mmol/L BUN 21 H (7-17) mg/dL Creatinine 1.26 H (0.52-1.04) mg/dL Est GFR (CKD-EPI)AfAm 54 (>60 ml/min/1.73 sqM) Est GFR (CKD-EPI)NonAf 47 (>60 ml/min/1.73 sqM) Glucose 92 (74-99) mg/dL Calcium 9.1 (8.4-10.2) mg/dL Magnesium 2.1 (1.6-2.3) mg/dL Total Bilirubin 0.8 (0.2-1.3) mg/dL AST 32 (14-36) U/L ALT 42 H (4-34) U/L Alkaline Phosphatase 137 H (38-126) U/L Troponin I (0.000-0.034) ng/mL NT-Pro-B Natriuret Pep 104 pg/mL Total Protein 6.8 (6.3-8.2) g/dL Albumin 4.1 (3.5-5.0) g/dL Influenza Type A (PCR) (Not Detectd) Influenza Type B (PCR) (Not Detectd) RSV (PCR) (Not Detectd) SARS-CoV-2 (PCR) (Not Detectd) 03/08/25 03/08/25 Range/Units 19:22 19:22 WBC (4.50-10.00) 10*3/uL RBC (4.10-5.20) 10*6/uL Hgb (12.0-15.0) g/dL Hct (37.2-46.3) % MCV (80.0-97.0) fL MCH (27.0-32.0) pg MCHC (32.0-37.0) g/dL Plt Count (140-440) 10*3/uL MPV (9.5-12.2) fL Immature Gran % (Auto) % Neutrophils % % Lymphocytes % % Monocytes % % Eosinophils % % Basophils % % Immature Gran # (0.00-0.04) 10*3/uL Neutrophils # (1.80-7.70) 10*3/uL Lymphocytes # (0.90-5.00) 10*3/uL Monocytes # (0.20-1.00) 10*3/uL Eosinophils # (0.04-0.35) 10*3/uL Basophils # (0.00-0.10) 10*3/uL PT (10.0-12.5) sec INR (<1.2) APTT (22.0-30.0) sec Sodium (137-145) mmol/L Potassium (3.5-5.1) mmol/L Chloride (98-107) mmol/L Carbon Dioxide (22-30) mmol/L Anion Gap mmol/L BUN (7-17) mg/dL Creatinine (0.52-1.04) mg/dL Est GFR (CKD-EPI)AfAm (>60 ml/min/1.73 sqM) Est GFR (CKD-EPI)NonAf (>60 ml/min/1.73 sqM) Glucose (74-99) mg/dL Calcium (8.4-10.2) mg/dL Magnesium (1.6-2.3) mg/dL Total Bilirubin (0.2-1.3) mg/dL AST (14-36) U/L ALT (4-34) U/L Alkaline Phosphatase (38-126) U/L Troponin I <0.012 (0.000-0.034) ng/mL NT-Pro-B Natriuret Pep pg/mL Total Protein (6.3-8.2) g/dL Albumin (3.5-5.0) g/dL Influenza Type A (PCR) Not Detected (Not Detectd) Influenza Type B (PCR) Not Detected (Not Detectd) RSV (PCR) Not Detected (Not Detectd) SARS-CoV-2 (PCR) Not Detected (Not Detectd) Disposition Is patient prescribed a controlled substance at d/c from ED?: No Decision Date: 03/08/25 Decision Time: 22:00 <Nani Parry - Last Filed: 03/08/25 22:26> <Marleny Roach - Last Filed: 03/10/25 10:36> Clinical Impression: COPD exacerbation Disposition: ADMITTED IP TO THIS HOSP Condition: Stable
[2025-03-08] MEDS: IPRATROPIUM-ALBUTEROL 3 ML NEB INHALATION STA (19:03)
[2025-03-08] MEDS: DEXAMETHASONE SOD PHOSPHATE 10 MG/ML 1 ML VIAL IM STA (19:17)
[2025-03-08 19:34] LABS: Basophils # (A) 0.06 10*3/uL (0.00-0.10); Basophils % (A) 0.4 %; Eosinophils # (A) 0.16 10*3/uL (0.04-0.35); Eosinophils % (A) 1.2 %; HCT 37.4 % (37.2-46.3); HGB 12.6 g/dL (12.0-15.0); Lymphocytes # (A) 2.89 10*3/uL (0.90-5.00); Lymphocytes % (A) 21.2 %; MCH 32.2 pg (27.0-32.0); MCHC 33.7 g/dL (32.0-37.0); MCV 95.7 fL (80.0-97.0); Mean Platelet Volume 11.8 fL (9.5-12.2); Monocytes % (A) 6.6 %; Neutrophils # (A) 9.56 10*3/uL (1.80-7.70); Neutrophils % (A) 70.2 %; Platelet Count 227 10*3/uL (140-440); RBC 3.91 10*6/uL (4.10-5.20); RDW 13.4 % (11.5-14.5); WBC 13.63 10*3/uL (4.50-10.00)
--- NOTE | 2025-03-08 19:40 | XR ---
EXAMINATION TYPE: XR chest 2V DATE OF EXAM: 03/08/2025 7:32 PM COMPARISON: CT low dose lung 08/21/2023 TECHNIQUE: XR chest 2V Frontal and lateral views of the chest. CLINICAL INDICATION:Female, 59 years old with history of difficulty breathing; FINDINGS: Lungs/Pleura: There is no evidence of pleural effusion, focal consolidation, or pneumothorax. Left l ower lung linear atelectasis. Pulmonary vascularity: Unremarkable. Heart/mediastinum: Cardiomediastinal silhouette is unremarkable. Musculoskeletal: No acute osseous pathology. IMPRESSION: No acute cardiopulmonary disease/process. [facility], , 03/08/2025 7:38 PM
[2025-03-08 19:47] LABS: INR 0.9 (<1.2); Partial Thromboplastin Time 22.3 sec (22.0-30.0); Prothrombin Time 9.9 sec (10.0-12.5)
[2025-03-08 19:48] LABS: ALT 42 U/L (4-34); AST 32 U/L (14-36); African American GFR (CKD) 54 (>60 ml/min/1.73 sqM); Albumin 4.1 g/dL (3.5-5.0); Alkaline Phosphatase 137 U/L (38-126); Anion Gap 8 mmol/L; Blood Urea Nitrogen 21 mg/dL (7-17); Calcium 9.1 mg/dL (8.4-10.2); Carbon Dioxide 24 mmol/L (22-30); Chloride 104 mmol/L (98-107); Glucose 92 mg/dL (74-99); Magnesium 2.1 mg/dL (1.6-2.3); Non-African American GFR(CKD) 47 (>60 ml/min/1.73 sqM); Potassium 4.3 mmol/L (3.5-5.1); Sodium 136 mmol/L (137-145); Total Bilirubin 0.8 mg/dL (0.2-1.3); Total Protein 6.8 g/dL (6.3-8.2)
[2025-03-08 19:56] LABS: NT-Pro-B-Type Natriuretic Pept 104 pg/mL
[2025-03-08 20:09] LABS: Influenza A Not Detected (Not Detectd); Influenza B Not Detected (Not Detectd); RSV Not Detected (Not Detectd)
[2025-03-08] MEDS: cefTRIAXone IN SWFI 1,000 MG/10 ML SYRINGE IVP STA (20:58)
[2025-03-08] MEDS: IPRATROPIUM 0.5 MG/2.5 ML NEBU INHALATION STA ×2 (20:59→21:00)
[2025-03-08] MEDS: ALBUTEROL NEBULIZED 2.5 MG/3 ML INHALATION SCH (20:59)
[2025-03-08] MEDS: AZITHROMYCIN 500 MG in SODIUM CHLORIDE 0.9% 250 ML IVPB STA (21:00)
[2025-03-08] MEDS ORDERED: NALOXONE 0.4 MG/ML 1 ML VIAL IV PRN (22:35)
[2025-03-08] MEDS ORDERED: guaiFENesin SYRUP 100MG/5ML 200 MG/10 ML CUP PO PRN (22:39)
[2025-03-08] MEDS: BENZONATATE 100 MG CAP PO STA (22:40)
[2025-03-08] MEDS ORDERED: BENZONATATE 100 MG CAP PO PRN (22:40)
[2025-03-08] MEDS: ACETAMINOPHEN TAB 325 MG TAB PO STA (22:40)
[2025-03-08] MEDS: guaiFENesin-DM 100-10MG/5ML 10 ML CUP PO STA (22:47)
[2025-03-08] MEDS ORDERED: ALPRAZolam 0.5 MG TAB PO PRN (23:45)
[2025-03-09] MEDS: METOPROLOL TARTRATE 12.5 MG TAB PO SCH (00:24)
[2025-03-09] MEDS: GABAPENTIN 300 MG CAP PO SCH (00:24)
[2025-03-09] MEDS: CYCLOBENZAPRINE 10 MG TAB PO PRN (00:28)
[2025-03-09] MEDS ORDERED: IPRATROPIUM-ALBUTEROL 3 ML NEB INHALATION PRN (00:34)
[2025-03-09] MEDS: methylPREDNISolone SOD SUCCI 40 MG/ML 1 ML VIAL IV SCH (00:43)
[2025-03-09] MEDS ORDERED: methylPREDNISolone SOD SUCCI 125 MG/2 ML VIAL IV SCH (00:45)
--- NOTE | 2025-03-09 00:57 | P.HPIM ---
History of Present Illness H&P Date: 03/08/25 Patient is a 59-year-old female with COPD (not on home oxygen) CAD, hyperlipidemia, hypertension, osteoarthritis, rheumatoid arthritis, current daily smoker, anxiety, depression here for evaluation of shortness of breath. Patient reported that she was experiencing shortness of breath yesterday that got worse today. She has attempted to use her albuterol inhaler and nebulizer but her shortness of breath persisted. She denied chest pain, palpitations, extremity swelling, calf pain, fever, chills, nausea, vomiting, diarrhea. Patient reported she had a sinus infection about a week ago with congestion and has improved. Her recently had pneumonia and was exposed to him. On admission: Vitals: Temp 97.5 F, pulse rate 108, RR 24, BP 147/86, O2 saturation 96% on room air Labs: WBC 13.63, hemoglobin 12.6, sodium 136, potassium 4.3, bicarb 24, calcium 9.1, magnesium 2.1, BUN 21, creatinine 1.26, alk phos 137, ALT 42, troponin less than 0.0 12, proBNP 104, PT 9.9, INR 0.9, PTT 22.3. Cepheid 4 Plex negative. Imaging: Chest x-ray showed no acute cardiopulmonary process. EKG showed sinus rhythm with a rate of 81, normal axis, no ST-T changes, good R wave progression, QTc 415 MS. ED documentation reviewed. Decadron 10 mg IM, DuoNebs, IV ceftriaxone and azithromycin given in the ED. Review of systems: Pertinent positives and negatives as discussed in HPI, a complete review of systems was performed and all other systems are negative. Social history: Tobacco: Active smoker for about delete 40 years 4-10 cigarettes per day. Intends to quit Alcohol: social alcohol intake Recreational drugs: Denied history of recreational or illicit drug use Travel: No recent prolonged travel Physical examination: Vital signs reviewed General: non toxic, no distress, appears at stated age, on room air Derm: no unusual rashes/lesions, warm Head: atraumatic, normocephalic, symmetric Eyes: EOMI, anicteric sclera, pupils equal round reactive to light ENT: Nose and ears atraumatic Neck: No cervical lymphadenopathy, trachea midline, supple Mouth: no lip lesion, mucus membranes moist Cardiovascular: S1S2 reg, no murmur Lungs: Diffuse expiratory and inspiratory wheezes, no accessory muscle use Abdominal: soft, nondistended, nontender to palpation, no guarding Ext: muscle strength 5 out of 5 in all 4 extremities grossly, no gross muscle atrophy, no contractures, positive dorsalis pedis pulse bilateral, no edema Neuro: CN II-XI grossly intact, no gross focal neuro deficits Psych: Alert and oriented x 3, appropriate affect and mood Assessment/Plan: 59-year-old female with COPD, CAD and current daily smoker here for evaluation of shortness of breath from COPD exacerbation The patient is admitted with an anticipated less than 2 midnight stay for eval uation of COPD exacerbation Active: #. Acute hypoxic respiratory failure secondary to COPD Exacerbation - Chest x-ray showed no acute cardiopulmonary process. -DuoNeb inhaler QID and PRN -Decadron 10 mg IM. Solumedrol 40mg IV once start prednisone 40 mg po daily -Symbicort 160-4.5mcg twice daily -Supplemental oxygen as needed #. Leukocytosis, likely reactive - The patient was given dexamethasone 10 mg IM in the ED - Monitor CBC #. CKD stage III, at baseline - creatinine 1.26 -Avoid nephrotoxic agents -Will monitor renal function Chronic Conditions: #. CAD, hyperlipidemia, hypertension, osteoarthritis, rheumatoid arthritisanxiety, depression -Continue with home Xanax, amlodipine 5 mg, atorvastatin 80 mg, bupropion 150 mg, fluoxetine 40 mg, gabapentin 300 mg, lisinopril 40 mg, Lopressor 12.5 mg, and oxybutynin 10 mg daily, Flexeril daily #. Nicotine dependence - Counseled patient on benefits of smoking cessation particularly in relation to her COPD F: Oral intake N: Regular diet A: Can ambulate as needed DVT ppx: Lovenox 40 mg subcu daily GI ppx: Protonix 40 mg p.o. daily CODE STATUS: Full Discussed with: Patient Anticipated discharge place: Home Augusta Kuhn MD PGY-1 Internal Medicine Dictation was produced using [employer] dictation software. please excuse any grammatical, word or spelling errors. I have seen and evaluated the patient today. I Discussed the case with the resident and agree with the resident's findings I edited the assessment and plan as necessary as documented in the resident's note. Past Medical History Past Medical History: Coronary Artery Disease (CAD), Hyperlipidemia, Hypertension, Osteoarthritis (OA), Rheumatoid Arthritis (RA) Additional Past Medical History / Comment(s): stress incontinence History of Any Multi-Drug Resistant Organisms: None Reported Past Surgical History: Heart Catheterization With Stent, Joint Replacement, Tubal Ligation Additional Past Surgical History / Comment(s): Total bilateral knee arthroplasies Past Anesthesia/Blood Transfusion Reactions: No Reported Reaction Date of Last Stent Placement:: 01/2023 Past Psychological History: Anxiety, Depression Smoking Status: Current every day smoker - Past Family History Father Family Medical History: Cancer, COPD, Coronary Artery Disease (CAD), CVA/TIA, Hyperlipidemia, Hypertension, Myocardial Infarction (NE), Vascular Disorder Additional Family Medical History / Comment(s): AAA, aneurysm. skin cancer Mother Family Medical History: Renal Disease Additional Family Medical History / Comment(s): at 62 yrs from kidney problems. Sister(s) Family Medical History: Cancer Additional Family Medical History / Comment(s): Small cell lung cancer Medications and Allergies Home Medications Medication Instructions Recorded Confirmed Type ALPRAZolam [Xanax] 0.5 mg PO Q12H PRN 01/31/23 03/08/25 History Cyclobenzaprine [Flexeril] 10 mg PO Q8H PRN 01/31/23 03/08/25 History Diclofenac Sodium [Voltaren] 75 mg PO BID PRN 01/31/23 03/08/25 History Ergocalciferol [Vitamin D2 (1250 1,250 mcg PO DELANEY 01/31/23 03/08/25 History Mcg = 26000 Iu)] FLUoxetine HCL [PROzac] 40 mg PO DAILY 01/31/23 03/08/25 History Gabapentin [Neurontin] 300 mg PO TID 01/31/23 03/08/25 History Oxybutynin ER [Ditropan XL] 10 mg PO DAILY 01/31/23 03/08/25 History amLODIPine [Norvasc] 5 mg PO DAILY 01/31/23 03/08/25 History buPROPion HCL [buPROPion HCL SR] 150 mg PO BID 01/31/23 03/08/25 History lisinopriL [Zestril] 40 mg PO DAILY 01/31/23 03/08/25 History Metoprolol Tartrate [Lopressor] 12.5 mg PO BID tab 02/03/23 03/08/25 Rx Albuterol Inhaler [Ventolin Hfa 2 puff INHALATION RT-Q4H PRN 03/08/25 03/08/25 History Inhaler] Atorvastatin [Lipitor] 80 mg PO W/SUPPER 03/08/25 03/08/25 History Celecoxib [CeleBREX] 200 mg PO BID 03/08/25 03/08/25 History Allergies Allergy/AdvReac Type Severity Reaction Status Date / Time Sulfa (Sulfonamide Allergy Severe Anaphylaxis Verified 03/08/25 19:43 Antibiotics) Physical Exam Vitals: Vital Signs Temp Pulse Resp BP Pulse Ox 03/08/25 21:04 72 19 110/69 93 L 03/08/25 21:01 77 03/08/25 20:13 81 22 111/65 95 03/08/25 19:22 93 24 132/84 95 03/08/25 19:12 88 24 03/08/25 19:03 85 20 03/08/25 18:22 97.5 F L 108 H 24 147/86 96 Intake and Output 03/08/25 03/08/25 03/08/25 06:59 14:59 22:59 Other: Weight 90.718 kg Results CBC & Chem 7: 03/08/25 19:22 03/08/25 19:22 Labs: Abnormal Lab Results - Last 24 Hours (Table) 03/08/25 03/08/25 03/08/25 Range/Units 19:22 19:22 19:22 WBC 13.63 H (4.50-10.00) 10*3/uL RBC 3.91 L (4.10-5.20) 10*6/uL MCH 32.2 H (27.0-32.0) pg Immature Gran # 0.06 H (0.00-0.04) 10*3/uL Neutrophils # 9.56 H (1.80-7.70) 10*3/uL PT 9.9 L (10.0-12.5) sec Sodium 136 L (137-145) mmol/L BUN 21 H (7-17) mg/dL Creatinine 1.26 H (0.52-1.04) mg/dL ALT 42 H (4-34) U/L Alkaline Phosphatase 137 H (38-126) U/L
[2025-03-09] MEDS: PANTOPRAZOLE 40 MG TABLET PO SCH (06:19)
[2025-03-09 07:18] LABS: Basophils # (A) 0.01 10*3/uL (0.00-0.10); Basophils % (A) 0.1 %; HCT 37.3 % (37.2-46.3); HGB 12.1 g/dL (12.0-15.0); Lymphocytes # (A) 0.65 10*3/uL (0.90-5.00); Lymphocytes % (A) 7.2 %; MCH 31.3 pg (27.0-32.0); MCHC 32.4 g/dL (32.0-37.0); MCV 96.6 fL (80.0-97.0); Mean Platelet Volume 12.2 fL (9.5-12.2); Monocytes # (A) 0.06 10*3/uL (0.20-1.00); Monocytes % (A) 0.7 %; Neutrophils # (A) 8.22 10*3/uL (1.80-7.70); Neutrophils % (A) 91.6 %; Platelet Count 227 10*3/uL (140-440); RBC 3.86 10*6/uL (4.10-5.20); RDW 13.3 % (11.5-14.5); WBC 8.98 10*3/uL (4.50-10.00)
[2025-03-09 07:29] LABS: African American GFR (CKD) >90 (>60 ml/min/1.73 sqM); Anion Gap 8 mmol/L; Blood Urea Nitrogen 18 mg/dL (7-17); Calcium 9.1 mg/dL (8.4-10.2); Carbon Dioxide 21 mmol/L (22-30); Chloride 107 mmol/L (98-107); Glucose 152 mg/dL (74-99); Non-African American GFR(CKD) 81 (>60 ml/min/1.73 sqM); Sodium 136 mmol/L (137-145)
[2025-03-09 07:32] LABS: Potassium 5.5 mmol/L (3.5-5.1)
[2025-03-09] MEDS: IPRATROPIUM-ALBUTEROL 3 ML NEB INHALATION SCH (07:45)
[2025-03-09] MEDS: SYMBICORT 80-4.5 MCG INHALER INHALATION SCH (07:45)
[2025-03-09 08:34] VITALS: BP 107/68; RESP 16; TEMP 98
[2025-03-09] MEDS ORDERED: METOPROLOL TARTRATE 12.5 MG TAB PO SCH (09:00)
[2025-03-09] MEDS ORDERED: GABAPENTIN 300 MG CAP PO SCH (09:00)
[2025-03-09] MEDS: MELOXICAM 7.5 MG TAB PO SCH (09:49)
[2025-03-09] MEDS: lisinopriL 20 MG TAB PO SCH (09:49)
[2025-03-09] MEDS: FLUoxetine HCL 20 MG CAP PO SCH (09:49)
[2025-03-09] MEDS: amLODIPine 5 MG TAB PO SCH (09:49)
[2025-03-09] MEDS: buPROPion SR 150 MG TABLET.ER PO SCH (09:49)
[2025-03-09] MEDS: ENOXAPARIN 40 MG/0.4 ML SYRINGE SQ SCH (09:49)
[2025-03-09] MEDS: OXYBUTYNIN 10 MG TAB.ER.24 PO SCH (09:49)
[2025-03-09] MEDS: predniSONE 20 MG TAB PO SCH (09:49)
[2025-03-09 09:53] LABS: African American GFR (CKD) >90 (>60 ml/min/1.73 sqM); Anion Gap 9 mmol/L; Blood Urea Nitrogen 17 mg/dL (7-17); Calcium 9.4 mg/dL (8.4-10.2); Carbon Dioxide 23 mmol/L (22-30); Chloride 105 mmol/L (98-107); Glucose 143 mg/dL (74-99); Non-African American GFR(CKD) 81 (>60 ml/min/1.73 sqM); Potassium 4.6 mmol/L (3.5-5.1); Sodium 137 mmol/L (137-145)
--- NOTE | 2025-03-09 11:47 | P.DS ---
Providers Date of admission: 03/08/25 22:40 Expected date of discharge: 03/09/25 Attending physician: Juan Diego Pettit MD [facility]: Discharge Diagnosis: COPD with mild exacerbation. History of CAD status post stenting Hypertension Hyperlipidemia Rheumatoid arthritis Anxiety with depression Nicotine dependence Hospital Course: Patient is a very pleasant 59-year-old female with a past medical history of CAD status post stenting, hypertension, hyperlipidemia, COPD with continued nicotine dependence not home rheumatoid arthritis, and anxiety with depression. She presented to our facility on with a chief complaint of short of breath. Patient reports using her inhaler at home but did not have any improvement. She also reported a recent sinus infection approximately a week ago but improved. She denied having any chest pain, palpitations, productive cough, fever, chills, nausea, vomiting, or experiencing any numbness/tingling/weakness/swelling in her extremities. Upon arrival to our facility, patient underwent evaluation in the emergency department. Vital signs upon arrival show blood pressure 147/86, heart rate 108, respiratory rate 24, temp 97.5 F, and SpO2 of 96% on room air. EKG was completed showing normal sinus rhythm at 81 bpm with no noted T wave or ST abnormality showing no signs of acute ischemia upon personal review and interpretation. Chest x-ray completed negative for acute cardiopulmonary process. Labs completed and reviewed. CBC showing mild leukocytosis with WBC count of 13.63. Coagulation profile showing a low PTT of 9.9 otherwise normal findings. BMP showing mild elevation of renal function with BUN of 21, creatinine of 1.26, GFR 47. Blood glucose 92. Liver profile showing elevated ALT of 42 and alkaline phosphatase of 137. Troponin was negative at less than 0.012. proBNP was 104. Cepheid 4 Plex viral panel was negative for influenza, RSV, and COVID. Patient admitted to observation unit under our services at this time. Patient hospitalized overnight. She received IV Decadron followed by oral prednisone. She reports feeling much better. Patient was educated on the importance of smoking cessation and risks of continued use. She is medically optimized for discharge recommending outpatient follow-up with PCP in 1 to 2 days and with tankage grinder for PFTs. Patient reports she has a nebulizer machine at home and was instructed to continue DuoNebs scheduled 4 times daily for the next week and then may transition to every 4 to 6 hours as needed for wheezing/shortness of breath. Patient discharged home with prednisone 50 mg daily for an additional 4 days. Physical exam: Vital signs reviewed and stable. General: Nontoxic, no distress and appears stated age. Derm: Skin warm and dry, normal coloration for ethnicity. Head: Atraumatic, normocephalic and symmetric. Eyes: EOM's intact, no lid lag, and anicteric sclera Mouth: no lip lesions, mucus membranes moist Cardiovascular: regular rate and rhythm with normal S1S2, no murmur, positive posterior tibial pulses bilaterally, and cap refill < 2 seconds. Lungs: Respirations even, regular, and unlabored on room air. Lungs slightly diminished with soft expiratory wheezes. Patient speaking in full sentences without any difficulties noted. Ambulatory in room without reports of shortness of breath. Abdominal: soft, nontender to palpation, no guarding, no appreciable organomegaly Ext: ROM intact. No gross muscle atrophy, no edema, no contractures Neuro: Speech clear, face symmetrical and CN II-XII grossly intact with no noted focal neuro deficits Psych: Alert and oriented to person, place, time, and situation. Appropriate and pleasant affect. A total of 33 minutes of time were spent preparing this complex discharge summary. Pt was discharged on 03/09/2025 at 11:39 AM. Patient was seen independently by Nurse Practitioner. This document was prepared using [employer] dictation software. Please allow for errors in court monitor while rare they do occur. Jhony Adorno RIVET MAKER rendered care for this patient independently, reviewed the findings and plan as documented in the note above. I did not physically speak with or examine the patient on this date. Patient Condition at Discharge: Stable Plan - Discharge Summary Discharge Rx Participant: No New Discharge Prescriptions: New Ipratropium-Albuterol Nebulize [Duoneb 0.5 mg-3 mg/3 ml Soln] 3 ml INHALATION RT-QID 30 Days #120 each predniSONE 50 mg PO DAILY 4 Days #4 tab Continue lisinopriL [Zestril] 40 mg PO DAILY Oxybutynin ER [Ditropan XL] 10 mg PO DAILY Gabapentin [Neurontin] 300 mg PO TID FLUoxetine HCL [PROzac] 40 mg PO DAILY ALPRAZolam [Xanax] 0.5 mg PO Q12H PRN PRN Reason: increased anxiety Cyclobenzaprine [Flexeril] 10 mg PO Q8H PRN PRN Reason: Muscle Spasm Atorvastatin [Lipitor] 80 mg PO W/SUPPER buPROPion HCL [buPROPion HCL SR] 150 mg PO BID amLODIPine [Norvasc] 5 mg PO DAILY Ergocalciferol [Vitamin D2 (1250 Mcg = 93520 Iu)] 1,250 mcg PO DELANEY Diclofenac Sodium [Voltaren] 75 mg PO BID PRN PRN Reason: Pain Metoprolol Tartrate [Lopressor] 12.5 mg PO BID tab Albuterol Inhaler [Ventolin Hfa Inhaler] 2 puff INHALATION RT-Q4H PRN PRN Reason: Shortness Of Breath Celecoxib [CeleBREX] 200 mg PO BID Discharge Medication List ALPRAZolam [Xanax] 0.5 mg PO Q12H PRN 01/31/23 [History] Cyclobenzaprine [Flexeril] 10 mg PO Q8H PRN 01/31/23 [History] Diclofenac Sodium [Voltaren] 75 mg PO BID PRN 01/31/23 [History] Ergocalciferol [Vitamin D2 (1250 Mcg = 94779 Iu)] 1,250 mcg PO DELANEY 01/31/23 [History] FLUoxetine HCL [PROzac] 40 mg PO DAILY 01/31/23 [History] Gabapentin [Neurontin] 300 mg PO TID 01/31/23 [History] Oxybutynin ER [Ditropan XL] 10 mg PO DAILY 01/31/23 [History] amLODIPine [Norvasc] 5 mg PO DAILY 01/31/23 [History] buPROPion HCL [buPROPion HCL SR] 150 mg PO BID 01/31/23 [History] lisinopriL [Zestril] 40 mg PO DAILY 01/31/23 [History] Metoprolol Tartrate [Lopressor] 12.5 mg PO BID tab 02/03/23 [Rx] Albuterol Inhaler [Ventolin Hfa Inhaler] 2 puff INHALATION RT-Q4H PRN 03/08/25 [History] Atorvastatin [Lipitor] 80 mg PO W/SUPPER 03/08/25 [History] Celecoxib [CeleBREX] 200 mg PO BID 03/08/25 [History] Ipratropium-Albuterol Nebulize [Duoneb 0.5 mg-3 mg/3 ml Soln] 3 ml INHALATION RT-QID 30 Days #120 each 03/09/25 [Rx] predniSONE 50 mg PO DAILY 4 Days #4 tab 03/09/25 [Rx] Follow up Appointment(s)/Referral(s): Dino Sanchez MD [STAFF PHYSICIAN] - 1 Week (need to follow up outpatient with tankage grinder for PFTs) Sonam Longoria MD [Primary Care Provider] - 1-2 days Patient Instructions/Handouts: How to Stop Smoking (DC), COPD (Chronic Obstructive Pulmonary Disease) (DC), Chronic Lung Disease and Infection Prevention (DC) Activity/Diet/Wound Care/Special Instructions: Activity: As tolerated. Take breaks as needed. Diet: Heart healthy and carb consistent diet. Special Instructions: Take all of your medications as directed and remember to keep all of your doctor's appointments and follow-up as needed. As discussed continue nebulizer treatments scheduled 4 times daily for the next week and then may decrease down to only as needed for wheezing/shortness of breath. It is important to establish care and follow-up with a tankage grinder for pulmonary function tests. Strongly recommend smoking cessation. Thank you for allowing us to participate in your care, it was truly a pleasure having you for our patient!!! Discharge Disposition: HOME SELF-CARE
[2025-03-09 11:49] VITALS: PULSE 70
[2025-03-09] MEDS ORDERED: ATORVASTATIN 80 MG TAB PO SCH (17:30)
== END 2025-03-09 13:12 | disposition home or self-care (01) ==
LOC: EC 18:20 → 1SOBS 22:40
PROVIDERS: ADMIT Internal Medicine; ATTEND Internal Medicine
DX: J44.1 Chronic obstructive pulmonary disease with (acute) exacerbation (principal); J96.01 Acute respiratory failure with hypoxia; I12.9 Hypertensive chronic kidney disease with stage 1 through stage 4 chronic kidney disease, or unspecified chronic kidney disease; N18.30 Chronic kidney disease, stage 3 unspecified; D72.829 Elevated white blood cell count, unspecified; R74.01 Elevation of levels of liver transaminase levels; I25.10 Atherosclerotic heart disease of native coronary artery without angina pectoris; E78.5 Hyperlipidemia, unspecified; M06.9 Rheumatoid arthritis, unspecified; F32.A Depression, unspecified; F41.9 Anxiety disorder, unspecified; F17.210 Nicotine dependence, cigarettes, uncomplicated; M19.90 Unspecified osteoarthritis, unspecified site; Z95.5 Presence of coronary angioplasty implant and graft; Z71.6 Tobacco abuse counseling; Z79.1 Long term (current) use of non-steroidal anti-inflammatories (NSAID); Z79.899 Other long term (current) drug therapy; Z88.2 Allergy status to sulfonamides
CPT/HCPCS: 96375 ×2; 96365; 96372; 99291; 36415; 94640 ×4; 94760; 93005; 83880; 80053; 80048; 83735; 84484; 85025 ×2; 85610; 85730; 87636; 71046; G0378 ×2; J1100; S0106; J0456; J0696; J7512; J2919

== ENCOUNTER → 2025-03-10 | Outpatient (CLI) | payer MEDICARE ==
[2025-03-10 10:02] VITALS: BP 116/76; PULSE 73; RESP 16; TEMP 97.3
--- NOTE | 2025-03-10 15:23 | P.PAINPG ---
Objective - Vital Signs Vital signs: Intake & Output 03/09/25 03/10/25 03/10/25 18:59 06:59 18:59 Weight 90.718 kg PQRS Measure Charge Sheet Comment: HISTORY OF PRESENT ILLNESS: A 59 yr old female presents today w severe and chronic LBP > 6 mo secondary to radiculopathy, spondylosis and facet arthropathy without myelopathy for evaluation s/p NATACHA L5-S1 #1. Pt states she experienced 80% pain relief x 3 wks s/p procedure. Pt states pain level is provoked at 4-5 /10 in intensity, constant, localized in the lumbar spine, predominantly axial, achy in character w occasional shooting pain towards the mid back. Pain is provoked by over activity. Pain is alleviated by PT x 6 wks which ended in Dec 2024, physician guided home stretches daily since Dec 2024, medications, topical, heat, repositioning and rest . Oswestry axial pain score at 24. Interventional procedures include NATACHA L5-S1 x1 Medications include Neurontin, Celebrex, Ibu, Icy-Hot REVIEW OF ORGAN SYSTEMS: CONSTITUTIONAL: No fevers or chills. No recent weight loss. NEUROLOGICAL: + numbness and tingling along the distal extremities. No seizure disorders or headaches. MUSCULOSKELETAL: + pain PSYCHIATRIC: Denies current depression or suicidal thoughts. Physical Examinations : Constitutional : Cooperative , not in acute distress . Neurologic : Cranial nerve II to XII intact. No focal neurological deficits. Psychiatric : alert & oriented x 3. Matching mood & appropriate affect. Judgment & insight intact. Musculoskeletal : Cervical Spine Motor strength in the deltoid and biceps: Normal right side. Normal Left side Motor strength biceps and the wrist extensors: Normal right side . Normal left side Motor strength in the triceps muscle: Normal right side. Normal left side Deep tendon reflexes: Normal at the biceps. Normal at Brachioradialis. Normal at triceps Vertebral body tenderness to deep palpation over Cervical facet loading test: positive bilaterally Spurling test: positive bilaterally Neck distraction test: positive bilaterally Isa sign: positive bilaterally Lumbar spine Motor strength lower extremities ,thigh and legs 5/5 Right side , 5/5 Left side Deep tendon reflexes : Normal Knee Jerk. Normal Ankle Jerk Vertebral body tenderness over L5 Pleitez Test positive BL L5-S1 Lumbar facet Loading Test: positive Right / positive Left Range of motion of the lumbar spine Flexion 30 degrees, extension 10 degrees Straight Leg Raise test: Left/ Right positive at degrees Iliana test: positive right / positive left. Severe tenderness over the Sacroiliac joint on the Right / Left sides Gaenslen test: positive bilaterally Seated flexion test: positive bilaterally. Sacral spine : Severe tenderness over the Sacroiliac joint: right side / left side Range of motion: Flexion of the lumbar spine <60 degrees Range of motion: Extension of the lumbar spine <20 degrees Gaenslen's Test positive Iliana test: positive right side / left side Thigh Thrust Test Sacral Thrust Test Imaging: MRI non contrast lumbar spine from 09/23/2024 reviewed MRI non contrast cervical spine from 09/23/2024 reviewed Assessment/ Plan : L5-S1 radiculopathy Will manage residual pain and may RTC on an as-needed basis. All questions answered. I have spent greater than 30 minutes on patient care today. Dr Matthew was available by phone for the evaluation of this patient. The time was used to review the medical records including relevant urine studies and Prescription history (MAPs), review of the available imaging, evaluation and examination of the patient, coordination of care with the medical staff and if applicable referring physicians, as well as creation of the medical record PQRS Narrative: Hx Alcohol Use (MH) No Home Medications: Ambulatory Orders ALPRAZolam [Xanax] 0.5 mg PO Q12H PRN 01/31/23 Cyclobenzaprine [Flexeril] 10 mg PO Q8H PRN 01/31/23 Diclofenac Sodium [Voltaren] 75 mg PO BID PRN 01/31/23 Ergocalciferol [Vitamin D2 (1250 Mcg = 17739 Iu)] 1,250 mcg PO DELANEY 01/31/23 FLUoxetine HCL [PROzac] 40 mg PO DAILY 01/31/23 Gabapentin [Neurontin] 300 mg PO TID 01/31/23 Oxybutynin ER [Ditropan XL] 10 mg PO DAILY 01/31/23 amLODIPine [Norvasc] 5 mg PO DAILY 01/31/23 buPROPion HCL [buPROPion HCL SR] 150 mg PO BID 01/31/23 lisinopriL [Zestril] 40 mg PO DAILY 01/31/23 Metoprolol Tartrate [Lopressor] 12.5 mg PO BID tab 03/27/23 Albuterol Inhaler [Ventolin Hfa Inhaler] 2 puff INHALATION RT-Q4H PRN 03/08/25 Atorvastatin [Lipitor] 80 mg PO W/SUPPER 03/08/25 Celecoxib [CeleBREX] 200 mg PO BID 03/08/25 Ipratropium-Albuterol Nebulize [Duoneb 0.5 mg-3 mg/3 ml Soln] 3 ml INHALATION RT-QID 30 Days #120 each 03/09/25 predniSONE 50 mg PO DAILY 4 Days #4 tab 03/09/25 Controlled Substance Measures - Controlled Substance Measures Is patient prescribed a controlled substance at discharge?: No
== END ==
LOC: PNWHC3 09:38
PROVIDERS: ATTEND Specialist
DX: M47.26 Other spondylosis with radiculopathy, lumbar region (principal); M54.50 Low back pain, unspecified; G89.29 Other chronic pain; Z88.2 Allergy status to sulfonamides
CPT/HCPCS: 99211

== ENCOUNTER → 2025-03-23 | Outpatient (CLI) | payer MEDICARE, OTHER ==
[2025-03-23 11:25] LABS: Influenza A Not Detected (Not Detectd); Influenza B Not Detected (Not Detectd); RSV Not Detected (Not Detectd)
[2025-03-23 14:55] LABS: Basophils # (A) 0.15 X 10*3/uL (0.00-0.10); Basophils % (A) 0.7 %; Eosinophils # (A) 0.58 X 10*3/uL (0.04-0.35); Eosinophils % (A) 2.9 %; HCT 37.9 % (37.2-46.3); HGB 12.1 g/dL (12.0-15.0); Lymphocytes # (A) 3.65 X 10*3/uL (0.90-5.00); Lymphocytes % (A) 17.9 %; MCH 30.9 pg (27.0-32.0); MCHC 31.9 g/dL (32.0-37.0); MCV 96.9 FL (80.0-97.0); Mean Platelet Volume 11.1 FL (9.5-12.2); Monocytes # (A) 0.81 X 10*3/uL (0.20-1.00); NRBC Per 100 WBC 0 X 10*3/uL (0.00-0.01); Neutrophils # (A) 14.25 X 10*3/uL (1.80-7.70); Neutrophils % (A) 70.1 %; Platelet Count 391 X 10*3/uL (140-440); RBC 3.91 X 10*6/uL (4.10-5.20); RDW 14.1 % (11.5-14.5); WBC 20.34 X 10*3/uL (4.50-10.00)
[2025-03-23 15:04] LABS: Erythrocyte Sedimentation Rate 95 mm/Hr (0-30)
[2025-03-23 15:24] LABS: ALT 53 U/L (8-44); AST 42 U/L (13-35); Albumin 3.4 g/dL (3.8-4.9); Alkaline Phosphatase 142 U/L (41-126); BUN/Creat Ratio 19.25 Ratio (12.00-20.00); Blood Urea Nitrogen 23.1 mg/dL (9.0-27.0); Carbon Dioxide 19.5 mmol/L (21.6-31.8); Chloride 102 mmol/L (96-109); Globulin 3.1 g/dL (1.6-3.3); Glucose 79 mg/dL (70-110); Potassium 5.2 mmol/L (3.5-5.5); Sodium 135 mmol/L (135-145); Total Bilirubin 0.7 mg/dL (0.3-1.2); Total Protein 6.5 g/dL (6.2-8.2)
[2025-03-23 15:51] LABS: NT-Pro-B-Type Natriuretic Pept 224 pg/mL (0-125)
== END | disposition home or self-care (01) ==
LOC: LABWHC1 09:48
PROVIDERS: ATTEND Internal Medicine
DX: J18.9 Pneumonia, unspecified organism (principal)
CPT/HCPCS: 36415; 80053; 83880; 85025; 85652; 87449; 87636

== ENCOUNTER → 2025-03-30 | Outpatient (CLI) | payer MEDICARE, OTHER ==
--- NOTE | 2025-03-30 13:30 | CT ---
EXAMINATION TYPE: CT chest wo con DATE OF EXAM: 03/30/2025 COMPARISON: Chest x-ray 1 week earlier CLINICAL INDICATION: Female, 59 years old with history of J18.9, cough and poss pneumonia TECHNIQUE: CT scan of the thorax is performed without IV contrast. CT DLP: 394.6 mGycm. Automated Exposure Control for Dose Reduction was Utilized. FINDINGS: LUNGS: Reticular increased markings bilaterally with additional areas of groundglass opacity is seen greatest in the lung bases but with both upper and lower lobe involvement. No focal consolidation. HEART: Mild cardiomegaly. Coronary artery stent in the left circumflex distribution is present. MEDIASTINUM: Lack of IV contrast is noted to limit evaluation for mediastinal and especially hilar ad enopathy. There are no definitive greater than 1 cm mediastinal lymph nodes. No pericardial effusio n is seen. OTHER: No additional significant abnormality is seen. IMPRESSION: Moderate diffuse bilateral interstitial edema and/or atypical infiltrates are felt presen t. Findings correlate with most recent x-ray. Correlate clinically. Further investigation with bronch oscopy May BE beneficial. [facility], , 03/30/2025 1:27 PM
== END | disposition home or self-care (01) ==
LOC: RADCTMAIN 09:47
PROVIDERS: ATTEND Internal Medicine
DX: J18.9 Pneumonia, unspecified organism (principal)
CPT/HCPCS: 71250

== ENCOUNTER → 2025-05-12 | Outpatient (CLI) | payer MEDICARE ==
--- NOTE | 2025-05-13 08:27 | XR ---
EXAMINATION TYPE: XR ribs RT w pa chest xray DATE OF EXAM: 05/12/2025 4:24 PM COMPARISON: 03/08/2025. CLINICAL INDICATION: Female, 59 years old with history of R07.89 OTHER CHEST PAIN; PHH, pain TECHNIQUE: XR ribs RT w pa chest xray; Frontal and oblique views of the ribs with frontal chest radio graph. FINDINGS: Acute fractures through right ris 9 and 10 with minimal displacement. The remainder of the ribs have a normal appearance. No evidence additional of fracture. Overall, the lungs are clear. Th e cardiac silhouette is normal in size. The remaining osseous structures are intact. IMPRESSION: Right rib 9 and 10 fracture with minimal displacement. [facility], , 05/13/2025 8:24 AM
== END | disposition home or self-care (01) ==
LOC: RADXRMAIN 16:10
PROVIDERS: ATTEND Family Medicine
DX: S22.41XA Multiple fractures of ribs, right side, initial encounter for closed fracture (principal); S23.29XA Dislocation of other parts of thorax, initial encounter; X58.XXXA Exposure to other specified factors, initial encounter

== ENCOUNTER → 2025-05-30 | Outpatient (CLI) | payer MEDICARE ==
[2025-05-30 15:27] LABS: Basophils # (A) 0.07 X 10*3/uL (0.00-0.10); Basophils % (A) 0.7 %; Eosinophils # (A) 0.23 X 10*3/uL (0.04-0.35); Eosinophils % (A) 2.4 %; HCT 40.2 % (37.2-46.3); HGB 12.5 g/dL (12.0-15.0); Immature Grans, Automated 0.60 %; Lymphocytes # (A) 2.92 X 10*3/uL (0.90-5.00); Lymphocytes % (A) 30.3 %; MCH 31.0 pg (27.0-32.0); MCHC 31.1 g/dL (32.0-37.0); MCV 99.8 FL (80.0-97.0); Monocytes # (A) 0.60 X 10*3/uL (0.20-1.00); Monocytes % (A) 6.2 %; NRBC Per 100 WBC 0 X 10*3/uL (0.00-0.01); Neutrophils # (A) 5.75 X 10*3/uL (1.80-7.70); Neutrophils % (A) 59.8 %; Platelet Count 256 X 10*3/uL (140-440); RBC 4.03 X 10*6/uL (4.10-5.20); RDW 14.3 % (11.5-14.5); WBC 9.63 X 10*3/uL (4.50-10.00)
[2025-05-30 15:42] LABS: INR 0.95 sec (0.93-1.11); Prothrombin Time 10.9 sec (9.9-11.9)
[2025-05-30 16:13] LABS: ALT 38 U/L (8-44); AST 26 U/L (13-35); Albumin 4.3 g/dL (3.8-4.9); Albumin/Globulin Ratio 1.95 Ratio (1.60-3.17); Alkaline Phosphatase 110 U/L (41-126); Anion Gap 13.60 mmol/L (4.00-12.00); BUN/Creat Ratio 15.08 Ratio (12.00-20.00); Blood Urea Nitrogen 18.1 mg/dL (9.0-27.0); Calcium 9.2 mg/dL (8.7-10.3); Carbon Dioxide 22.4 mmol/L (21.6-31.8); Chloride 107 mmol/L (96-109); Globulin 2.2 g/dL (1.6-3.3); Glucose 105 mg/dL (70-110); Potassium 4.1 mmol/L (3.5-5.5); Sodium 143 mmol/L (135-145); Total Protein 6.5 g/dL (6.2-8.2)
== END | disposition home or self-care (01) ==
LOC: LABPAT 10:06
PROVIDERS: ATTEND Orthopaedic Surgery
DX: Z01.812 Encounter for preprocedural laboratory examination (principal); M54.16 Radiculopathy, lumbar region
CPT/HCPCS: 80053; 82306; 85025; 85610; 87070

== ENCOUNTER 2025-06-07 12:25 | Emergency (ER) | payer MEDICARE ==
--- NOTE | 2025-06-07 12:52 | ED ---
Fall HPI - General Chief Complaint: Fall Stated Complaint: Fall Time Seen by Provider: 06/07/25 12:52 Source: patient, RN notes reviewed, old records reviewed Mode of arrival: ambulatory - History of Present Illness Initial Comments: This is a 59-year-old female to the ER for evaluation of severe left-sided rib pain worse when she moves her left arm worse when she bends takes a deep breath. Patient's pain is severe in her left rib left lower lower ribs no abdominal pain. Patient's symptoms began after a fall landing on her 's walker on the left side of her chest. No other injuries noted MD Complaint: fall -: hour(s) Fall From: standing When Fall Occurred: 1 hour PATROL LADY Fall Witnessed: yes, by family Place Fall Occurred: home Loss of Consciousness: none Prolonged Down Time?: no Symptoms Prior to Fall: none Location: chest Severity: severe Severity scale (1-10): 9 Context: tripped/slipped Associated Symptoms: denies - Related Data Home Medications Medication Instructions Recorded Confirmed ALPRAZolam [Xanax] 0.5 mg PO Q12H PRN 01/31/23 03/10/25 Cyclobenzaprine [Flexeril] 10 mg PO Q8H PRN 01/31/23 03/10/25 Diclofenac Sodium [Voltaren] 75 mg PO BID PRN 01/31/23 03/10/25 Ergocalciferol [Vitamin D2 (1250 1,250 mcg PO DELANEY 01/31/23 03/10/25 Mcg = 68058 Iu)] FLUoxetine HCL [PROzac] 40 mg PO DAILY 01/31/23 03/10/25 Gabapentin [Neurontin] 300 mg PO TID 01/31/23 03/10/25 Oxybutynin ER [Ditropan XL] 10 mg PO DAILY 01/31/23 03/10/25 amLODIPine [Norvasc] 5 mg PO DAILY 01/31/23 03/10/25 buPROPion HCL [buPROPion HCL SR] 150 mg PO BID 01/31/23 03/10/25 lisinopriL [Zestril] 40 mg PO DAILY 01/31/23 03/10/25 Albuterol Inhaler [Ventolin Hfa 2 puff INHALATION RT-Q4H PRN 03/08/25 03/10/25 Inhaler] Atorvastatin [Lipitor] 80 mg PO W/SUPPER 03/08/25 03/10/25 Celecoxib [CeleBREX] 200 mg PO BID 03/08/25 03/10/25 Previous Rx's Medication Instructions Recorded Metoprolol Tartrate [Lopressor] 12.5 mg PO BID tab 02/03/23 Ipratropium-Albuterol Nebulize 3 ml INHALATION RT-QID 30 Days 03/09/25 [Duoneb 0.5 mg-3 mg/3 ml Soln] #120 each predniSONE 50 mg PO DAILY 4 Days #4 tab 03/09/25 Diclofenac Sodium Gel [Voltaren 1% 50 gm TOPICAL BID 30 Days #1 each 03/10/25 Gel] Allergies Allergy/AdvReac Type Severity Reaction Status Date / Time Sulfa (Sulfonamide Allergy Severe Anaphylaxis Verified 06/07/25 12:46 Antibiotics) Review of Systems ROS Statement: Those systems with pertinent positive or pertinent negative responses have been documented in the HPI. ROS Other: All systems not noted in ROS Statement are negative. Past Medical History Past Medical History: Coronary Artery Disease (CAD), Hyperlipidemia, Hypertension, Osteoarthritis (OA), Rheumatoid Arthritis (RA) Additional Past Medical History / Comment(s): stress incontinence History of Any Multi-Drug Resistant Organisms: None Reported Past Surgical History: Heart Catheterization With Stent, Joint Replacement, Tubal Ligation Additional Past Surgical History / Comment(s): Total bilateral knee arthroplasies Past Anesthesia/Blood Transfusion Reactions: No Reported Reaction Date of Last Stent Placement:: 01/2023 Past Psychological History: Anxiety, Depression Smoking Status: Current every day smoker Past Alcohol Use History: Occasional Past Drug Use History: None Reported - Past Family History Father Family Medical History: Cancer, COPD, Coronary Artery Disease (CAD), CVA/TIA, Hyperlipidemia, Hypertension, Myocardial Infarction (ID), Vascular Disorder Additional Family Medical History / Comment(s): AAA, aneurysm. skin cancer Mother Family Medical History: Renal Disease Additional Family Medical History / Comment(s): at 62 yrs from kidney problems. Sister(s) Family Medical History: Cancer Additional Family Medical History / Comment(s): Small cell lung cancer General Exam Limitations: no limitations General appearance: alert, in no apparent distress Head exam: Present: atraumatic, normocephalic, normal inspection Eye exam: Present: normal appearance, PERRL, EOMI. Absent: scleral icterus, conjunctival injection, periorbital swelling ENT exam: Present: normal exam, mucous membranes moist Neck exam: Present: normal inspection. Absent: tenderness, meningismus, lymp hadenopathy Respiratory exam: Present: normal lung sounds bilaterally. Absent: respiratory distress, wheezes, rales, rhonchi, stridor Cardiovascular Exam: Present: regular rate, normal rhythm, normal heart sounds. Absent: systolic murmur, diastolic murmur, rubs, gallop, clicks GI/Abdominal exam: Present: soft, normal bowel sounds. Absent: distended, tenderness, guarding, rebound, rigid Extremities exam: Present: normal inspection, full ROM, normal capillary refill. Absent: tenderness, pedal edema, joint swelling, calf tenderness Back exam: Present: normal inspection Neurological exam: Present: alert, oriented X3, CN II-XII intact Psychiatric exam: Present: normal affect, normal mood Skin exam: Present: warm, dry, intact, normal color. Absent: rash Course Vital Signs 06/07/25 06/07/25 12:44 13:46 Temperature 97.9 F 98 F Pulse Rate 92 71 Respiratory 18 16 Rate Blood Pressure 144/83 151/88 O2 Sat by Pulse 98 97 Oximetry - Reevaluation(s) Reevaluation #1: 06/07/25 14:16 Medical records reviewed Reevaluation #2: 06/07/25 15:17 Patient symptoms improved Reevaluation #3: 06/07/25 15:17 Patient informed of results and questions have been answered Reevaluation #4: Was pt. sent in by a medical professional or institution (, PA, FISHING BOAT CAPTAIN, urgent care, hospital, or alf...) When possible be specific @ -no Did you speak to anyone other than the patient for history (EMS, parent, family, police, friend...)? What history was obtained from this source @ -no Did you review nursing and triage notes (agree or disagree)? Why? @ -agree Are old charts reviewed (outside hosp., previous admission, EMS record, old EKG, old radiological studies, urgent care reports/EKG's, alf records)? Report findings @ -yes Differential Diagnosis (chest pain, altered mental status, abdominal pain women, abdominal pain men, vaginal bleeding, weakness, fever, dyspnea, syncope, headache, dizziness, GI bleed, back pain, seizure, CVA, palpatations, mental health, musculoskeletal)? @ -prior EKG interpreted by me (3pts min.). @ -yes X-rays interpreted by me (1pt min.). @ -yes negative for acute disease CT interpreted by me (1pt min.). @ -no U/S interpreted by me (1pt. min.). @ -no What testing was considered but not performed or refused? (CT, X-rays, U/S, labs)? Why? @ -none What meds were considered but not given or refused? Why? @ -none Did you discuss the management of the patient with other professionals (professionals i.e. , PA, FISHING BOAT CAPTAIN, lab, RT, psych nurse, social service coordinator, non profit job titles, teacher, employment security officer, case assistant)? Give summary @ -no Was smoking cessation discussed for >3mins.? @ -no Was critical care preformed (if so, how long)? @ -no Were there social determinants of health that impacted care today? How? (Homelessness, low income, unemployed, alcoholism, drug addiction, transportation, low edu. Level, literacy, decrease access to med. care, [facility], rehab)? @ -none Was there de-escalation of care discussed even if they declined (Discuss DNR or withdrawal of care, Hospice)? DNR status @ -no What co-morbidities impacted this encounter? (DM, HTN, Smoking, COPD, CAD, Cancer, CVA, ARF, Chemo, Hep., AIDS, mental health diagnosis, sleep apnea, morbid obesity)? @ -none Was patient admitted / discharged? Hospital course, mention meds given and route, prescriptions, significant lab abnormalities, going to OR and other pertinent info. @ - Undiagnosed new problem with uncertain prognosis? @ -no Drug Therapy requiring intensive monitoring for toxicity (Heparin, Nitro, Insulin, Cardizem)? @ -no Were any procedures done? @ -no Diagnosis/symptom? @ - Acute, or Chronic, or Acute on Chronic? @ -Acute Uncomplicated (without systemic symptoms) or Complicated (systemic symptoms)? @ -Complicated Side effects of treatment? @ -no Exacerbation, Progression, or Severe Exacerbation? @ -exacerbation Poses a threat to life or bodily function? How? (Chest pain, USA, ID, pneumonia, PE, COPD, DKA, ARF, appy, cholecystitis, CVA, Diverticulitis, Homicidal, Suic idal, threat to staff... and all critical care pts) @ -yes Reevaluation #5: Differential Chest Pain: Stable Angina, Unstable Angina, STEMI, NSTEMI Aortic Dissection, Pneumothorax, Musculoskeletal, Esophageal Spasm GERD, Cholecystitis, Pancreatitis, Zoster, this is not meant to be an all-inclusive list. Medical Decision Making - Medical Decision Making 59 female to the ER for evaluation. Patient presents today for evaluation regards to the ER after fall fall with left rib fracture. Patient is in no acute shortness of breath pain is controlled and she can be discharged home - Radiology Data Radiology results: report reviewed (Chest x-ray positive for left seventh rib f racture), image reviewed Disposition Clinical Impression: Fall, Left rib fracture Disposition: HOME SELF-CARE Condition: Good Instructions (If sedation given, give patient instructions): Rib Fracture (ED) Is patient prescribed a controlled substance at d/c from ED?: No Referrals: Sonam Longoria MD [Primary Care Provider] - 1-2 days Time of Disposition: 15:15
[2025-06-07] MEDS: traMADol 50 MG TAB PO STA (13:19)
[2025-06-07] MEDS: KETOROLAC 15 MG/ML 1 ML VIAL IM STA (13:20)
[2025-06-07 14:34] VITALS: RESP 16; TEMP 98
--- NOTE | 2025-06-07 14:53 | XR ---
EXAMINATION TYPE: XR ribs LT w pa chest xray DATE OF EXAM: 06/07/2025 2:38 PM INDICATION: Patient age:Female; 59 years old; Reason for study: pain; PHH. pain COMPARISON: 05/12/2025 TECHNIQUE: Frontal and oblique views of the left ribs with additional PA chest radiograph. FINDINGS: Acute minimally displaced fracture of the left lateral seventh rib. Overall, the lungs are clear. The cardiac silhouette is normal in size. The remaining osseous structures are intact. IMPRESSION: Acute minimally displaced fracture of the left lateral seventh rib. [facility], , 06/07/2025 2:51 PM
[2025-06-07] MEDS: traMADol 50 MG STARTER PACK TAB BTL PO STA (15:20)
[2025-06-07] MEDS: ACET/COD 300 MG/30 MG STARTER PACK TAB BTL PO STA (15:21)
[2025-06-07 15:25] VITALS: BP 139/86; PULSE 74
== END 2025-06-07 16:07 | disposition home or self-care (01) ==
LOC: EC 12:25
DX: S22.32XA Fracture of one rib, left side, initial encounter for closed fracture (principal); F17.200 Nicotine dependence, unspecified, uncomplicated; Z88.2 Allergy status to sulfonamides; W01.0XXA Fall on same level from slipping, tripping and stumbling without subsequent striking against object, initial encounter; Y92.009 Unspecified place in unspecified non-institutional (private) residence as the place of occurrence of the external cause
CPT/HCPCS: 71101; 99283; 96372; J1885